=== PATIENT | female | born 1985 | race Caucasian/White ===

== ENCOUNTER → 2022-03-06 16:58 | Outpatient (CLI) | payer OTHER, SELFPAY ==
--- NOTE | ~2022-03-06 | MR_ITS ---
EXAMINATION: MR lumbar spine wo con DATE: 03/06/2022 18:31 INDICATION: Lumbago,Radiculopathy . TECHNIQUE: Magnetic resonance imaging (MRI) of the lumbar spine was performed without intravenous con trast. Sequences included sagittal T2-weighted FSE, sagittal T2-weighted FS FSE, sagittal T1-weighted FSE, and axial T2-weighted FSE. COMPARISON: None FINDINGS: Incidental pelvic cyst, likely ovarian and requires no additional follow-up. Partial sacral ization of L5 on the left, with pseudoarthrosis formation. Tarlov cysts. The last fully formed and hy drated disc is designated L5-S1. The marrow signal is benign. Conus terminates at T12-L1. Mild loss o f disc height at L4-5. Loss of disc height and dehydration at L5-S1. The following disc levels are sp ecifically discussed: T11-T12: The disc does not extend beyond the endplate margin. There is no facet joint osteoarthritis. There is no neural foraminal stenosis. There is no central canal stenosis. T12-L1: The disc does not extend beyond the endplate margin. There is no facet joint osteoarthritis. There is no neural foraminal stenosis. There is no central canal stenosis. L1-L2: The disc does not extend beyond the endplate margin. There is mild facet joint osteoarthritis. There is no neural foraminal stenosis. There is no central canal stenosis. L2-L3: Mild diffuse bulge. There is mild facet joint osteoarthritis. There is no neural foraminal kathya nosis. There is no central canal stenosis. L3-L4: Mild diffuse bulge, with a tiny 4 mm circumferentially oriented rent in the posterior disc. Th ere is moderate facet joint osteoarthritis. There is no neural foraminal stenosis. There is no centra l canal stenosis. L4-L5: Mild diffuse bulge with a right lateral predominance. There is moderate facet joint osteoarthr itis. There is no neural foraminal stenosis. There is no central canal stenosis. L5-S1: Moderate diffuse bulge. 3 mm central protrusion. 9 mm circumferentially oriented rent in the p osterior disc. There is moderate facet joint osteoarthritis. There is no neural foraminal stenosis. T here is no central canal stenosis. IMPRESSION: 1. Moderate degenerative disc disease with a 3 mm central protrusion at L5-S1. 2. 4 mm and 9 mm circumferentially oriented annulus fibrosus tears in the posterior discs at L4-5 and L5-S1 respectively. 3. Moderate facet arthropathy in the lower lumbar spine. 4. Left L5 sacralization with pseudoarthrosis. Reviewed, dictated and finalized at location K. IMPRESSION: 1. Moderate degenerative disc disease with a 3 mm central protrusion at L5-S1. 2. 4 mm and 9 mm circumferentially oriented annulus fibrosus tears in the poste rior discs at L4-5 and L5-S1 respectively. 3. Moderate facet arthropathy in the lower lumbar spine. 4. Left L5 sacralization with pseudoarthrosis.
== END ==
PROVIDERS: PCP Physician Assistant; Visit Provider Nurse Practitioner Family
DX: M54.16 Radiculopathy, lumbar region (principal); M51.36 Other intervertebral disc degeneration, lumbar region
CPT/HCPCS: 72148

== ENCOUNTER 2023-10-01 09:15 | Outpatient (CLI) | payer OTHER, SELFPAY ==
--- NOTE | 2023-10-01 10:30 | NEURO_ITS ---
Impression: # Complains of numbness of left hand. # Normal Nerve Conduction Study. No Carpal Tunnel Syndrome or ulnar neuropathy. # Normal needle/EMG exam. # Repeat study at a later date suggested Nerve Conduction Studies Anti Sensory Summary Table Stim Site NR Peak (ms) P-T Amp (?V) Site1 Site2 Delta-P (ms) Dist (cm) Eugene (m/s) Left Median Anti Sensory (2-3nd Digit) Wrist 3.0 78.9 Wrist 2-3nd Digit 3.0 14.0 47 Wrist 3.6 57.5 Wrist 2-3nd Digit 3.0 14.0 47 Right Median Anti Sensory (2-3nd Digit) Wrist 2.8 64.4 Wrist 2-3nd Digit 2.8 14.0 50 Wrist 2.7 96.8 Wrist 2-3nd Digit 2.8 14.0 50 Left Radial Anti Sensory (Base 1st Digit) Wrist 2.2 12.5 Wrist Base 1st Digit 2.2 0.0 Right Radial Anti Sensory (Base 1st Digit) Wrist 1.8 37.2 Wrist Base 1st Digit 1.8 0.0 Left Ulnar Anti Sensory (5th Digit) Wrist 2.1 80.0 Wrist 5th Digit 2.1 14.0 67 Right Ulnar Anti Sensory (5th Digit) Wrist 2.0 92.1 Wrist 5th Digit 2.0 14.0 70 Motor Summary Table Stim Site NR Onset (ms) O-P Amp (mV) Site1 Site2 Delta-0 (ms) Dist (cm) Eugene (m/s) Left Median Motor (Abd Poll Brev) Wrist 2.9 3.4 Elbow Wrist 4.4 26.0 59 Elbow 7.3 3.3 Right Median Motor (Abd Poll Brev) Wrist 2.8 12.5 Elbow Wrist 4.1 26.0 63 Elbow 6.9 9.2 Left Ulnar Motor (Abd Dig Minimi) Wrist 2.3 8.4 A Elbow Wrist 4.7 27.0 57 A Elbow 7.0 7.1 Right Ulnar Motor (Abd Dig Minimi) Wrist 2.5 6.5 A Elbow Wrist 4.5 27.0 60 A Elbow 7.0 6.7 F Wave Studies NR F-Lat (ms) L-R F-Lat (ms) Left Median (Mrkrs) (Abd Poll Brev) 25.89 0.08 Right Median (Mrkrs) (Abd Poll Brev) 25.97 0.08 Left Ulnar (Mrkrs) (Abd Dig Min) 26.06 0.28 Right Ulnar (Mrkrs) (Abd Dig Min) 25.78 0.28 EMG Side Muscle Nerve Root Ins Act Fibs Amp Dur Recrt Comment Right 1stDorInt Ulnar C8-T1 Nml Nml Nml Nml Nml Right Ext Indicis Radial (Post Int) C7-8 Nml Nml Nml Nml Nml Right Ext Digitorum Radial (Post Int) C7-8 Nml Nml Nml Nml Nml Right BrachioRad Radial C5-6 Nml Nml Nml Nml Nml Right PronatorTeres Median C6-7 Nml Nml Nml Nml Nml Right Abd Poll Brev Median C8-T1 Nml Nml Nml Nml Nml Left 1stDorInt Ulnar C8-T1 Nml Nml Nml Nml Nml Left Ext Indicis Radial (Post Int) C7-8 Nml Nml Nml Nml Nml Left Ext Digitorum Radial (Post Int) C7-8 Nml Nml Nml Nml Nml Left BrachioRad Radial C5-6 Nml Nml Nml Nml Nml Left PronatorTeres Median C6-7 Nml Nml Nml Nml Nml Left Abd Poll Brev Median C8-T1 Nml Nml Nml Nml Nml MTDD
== END 2023-10-01 09:16 | disposition home or self-care (01) ==
LOC: ANHNEURO 09:20
PROVIDERS: PCP Physician Assistant; Visit Provider Physician Assistant
DX: R20.2 Paresthesia of skin (principal)
CPT/HCPCS: 95886; 95911

== ENCOUNTER 2024-08-24 14:22 | Outpatient (CLI) | payer OTHER, SELFPAY ==
--- NOTE | ~2024-08-24 | MM_ITS ---
EXAMINATION: MM screening pilar BI w judith HISTORY: Screening TECHNIQUE: Craniocaudal and mediolateral oblique 3-D tomosynthesis images were obtained and synthetic 2-D images were generated. CAD analysis was submitted and interpreted. COMPARISON: No prior mammogram is available for comparison at this institution. BREAST PARENCHYMAL COMPOSITION: Not dense: There are scattered areas of fibroglandular density. FINDINGS: There are asymmetries in the upper outer quadrant of both breasts, posterior third. There a re no suspicious calcifications. IMPRESSION: 1. Bilateral breast asymmetries. 2. Additional mammographic views and possible breast ultrasound are recommended. BI-RADS Category 0: Incomplete: Needs additional imaging evaluation. Reviewed, dictated and finalized at location B. AN/WOMAN IMPRESSION: 1. Bilateral breast asymmetries. 2. Additional mammographic views and possible breast ultrasound are recommended . BI-RADS Category 0: Incomplete: Needs additional imaging evaluation.
== END 2024-08-24 14:23 | disposition home or self-care (01) ==
LOC: CHSIMG 14:24
PROVIDERS: PCP Physician Assistant; Visit Provider Nurse Practitioner Obstetrics & Gynecology
DX: Z12.31 Encounter for screening mammogram for malignant neoplasm of breast (principal); R92.8 Other abnormal and inconclusive findings on diagnostic imaging of breast
CPT/HCPCS: 77063; 77067

== ENCOUNTER 2024-09-09 12:48 | Outpatient (CLI) | payer OTHER, SELFPAY ==
--- NOTE | ~2024-09-09 | MM_ITS ---
EXAMINATION: MM diagnostic pilar BI w judith HISTORY: Bilateral asymmetric densities TECHNIQUE: Additional 3-D tomosynthesis images of the breasts were performed and synthetic 2-D images were generated. CAD analysis was submitted and interpreted. COMPARISON: 08/24/2024 BREAST PARENCHYMAL COMPOSITION:Not Dense. There are scattered areas of fibroglandular density. FINDINGS: The areas of asymmetry effaced bilaterally with spot compression. No persistent mass lesion or distortion seen. No suspicious macrocalcification. IMPRESSION: No mammographic evidence for malignancy. BI-RADS Category 1: Negative Reviewed, dictated and finalized at location . C PROFESSOR
== END 2024-09-09 12:49 | disposition home or self-care (01) ==
LOC: ANHIMG 12:49
PROVIDERS: PCP Physician Assistant; Visit Provider Nurse Practitioner Obstetrics & Gynecology
DX: R92.8 Other abnormal and inconclusive findings on diagnostic imaging of breast (principal)
CPT/HCPCS: 77062; 77066; G0279

== ENCOUNTER 2025-02-11 05:54 | Day surgery (SDC) | payer OTHER, SELFPAY ==
[2025-01-25 11:42] VITALS: BMI 30.2
[2025-02-11] VITALS (11 sets, daily range): BP systolic 125–149; BP diastolic 83–96; PULSE 68–88; RESP 12–16; TEMP 35.8–37.1; O2SAT 95–100
--- OUTSIDE RECORDS SUMMARY | 2025-02-11 06:08 | XMS_ITS | Clinical Summary ---
Author Organization [facility] Address [address] [place] [address] Phone Care Team Providers Care Stone Operator Name Role Phone Cate Wolfe MD Primary Care Provider +1- [phone] Social History Tobacco Use Types Packs/Day Years Used Date Smoking Tobacco: Never Assessed Comments Unknown Sex and Gender Information Value Date Recorded Sex Assigned at Not on file Legal Sex Female 4:56 AM PRODUCT MANAGENT INTERN Gender Identity Not on file Sexual Orientation Not on file Plan of Treatment Health Maintenance Due Date Last Done Comments DTAP/TDAP/TD VACCINES (1 - Tdap) 2003 HEPATITIS B VACCINES (1 of 3 - 19+ 3-dose series) 2003 HPV/Cotest (21-29) 2005 CERVICAL CANCER SCREENING 2014 HPV/Cotest (30-65) 2014 PAP SMEAR 2014 INFLUENZA VACCINE (#1) 2024 BREAST CANCER SCREENING 2024 HPV VACCINES Aged Out No longer eligi ble based on patient's age to complete this topic Insurance [facility] [id number] Care Teams Stone Operator Relationship Specialty Start Date End Date Cate Wolfe MD PCP - General Internal Medicine 08/18/14
--- OUTSIDE RECORDS SUMMARY | 2025-02-11 06:08 | XMS_ITS | Referral Summary ---
Author Organization [facility] [address] [facility] lt Address [address] [place] [facility] [address] Care Team Providers Care Globe Tester Name Role Phone Aleisha Meyer Primary Care Pr ovider Aleisha Meyer Unavailable Encounters Date Type Department Care Team Description 02/09/2025 6:45 PM CDT Office Visit [facility] at [address] [address] Almita Pappas NP Acute cough (Primary Dx) from Last 3 Months Allergies No known active allergies Medications fexofenadine (GRAHAM) 180 mg tablet take 1 tablet by oral route every day 0 0 4 Active zolpidem (AMBIEN) 5 mg tabletIndicatio ns:Sleep-Onset Insomnia Take 1 tablet (5 mg total) by mouth nightly as needed for sleep 10 tablet 5 0 Active Additional Information Patient not taking.Reported on 02/09/2025 hydroCHLOROthia zide (HYDRODIURIL) 12.5 mg tablet Take 1 tablet (12.5 mg total) by mouth every morning 5 9 Active montelukast (SINGULAIR) 10 mg tablet Take 1 tablet (10 mg total) by mouth daily 3 9 Active albuterol HFA (PROVENTIL HFA,VENTOLIN HFA,PROAIR HFA) 90 mcg/actuation inhaler Inhale 2 puffs every 6 (six) hours as needed 1 Active Kesimpta Pen 20 mg/0.4 mL pen injectorIndicat ions:Multiple sclerosis (HCC) Inject 20 mg under the skin every 30 (thirty) days 0.4 mL 5 5 Active baclofen (LIORESAL) 10 mg tablet TAKE 1 TABLET BY MOUTH DAILY NEEDED FOR MUSCLE SPASMS. 90 tablet 1 5 Active tiZANidine (ZANAFLEX) 4 mg tablet Take 1 tablet (4 mg total) by mouth as needed 4 Active busPIRone (BUSPAR) 15 mg tabletIndicatio ns:Anxiety and depression Take 1 tablet (15 mg total) by mouth 2 (two) times a day 60 tablet 5 5 Active benzonatate (TESSALON) 200 mg capsuleIndicati ons:Acute cough Take 1 capsule (200 mg total) by mouth 3 (three) times a day as needed for cough 20 capsule 5 Active Active Problems Problem Noted Date Diagnosed Date Sensorineural hearing loss ( SNHL) of left ear with unrestricted hearing of right ear 08/20/2024 Assessment & Plan (08/20/2024 2:02 PM CDT): Nasal saline spray (Simply saline, Little Remedies, [place], Cranberry) 2 second sprays or 2 squeezes into each nostril while looking down over the sink, do not need to sniff in. Nasacort 2 sprays into each nostril while looking down over the sink, do not sniff in or blow nose after use for at least 30 minutes daily Cetirizine 10 mg daily Continue Singulair Blood allergy testing Hearing test Anxiety and depression 05/08/2024 Assessment & Plan (11/12/2024 11:53 AM JAVA TECH): Increase buspirone to 15 mg twice a day from 7.5 mg twice a day Assessment & Plan (05/08/2024 1:15 PM CDT): Buspirone 10 mg twice a day Vitamin D deficiency 11/08/2023 Assessment & Plan (11/12/2024 11:54 AM JAVA TECH): 12/30/18 vitamin D 16 Vitamin D3 1000 IU daily Assessment & Plan (05/08/2024 1:14 PM CDT): 12/30/18 vitamin D 16 Vitamin D3 5000 IU daily History of COVID-19 11/08/2023 Assessment & Plan (05/08/2024 1:15 PM CDT): Three prior infections. Blood glucose abnormal 06/10/2023 Weight gain 06/10/2023 Carpal tunnel syndrome of left wrist 04/02/2023 Pain of left hand 04/02/2023 Paresthesia of hand 03/19/2023 Acute left otitis media 10/23/2022 Contact dermatitis due to poison saira 06/19/2022 Tension-type headache 04/18/2022 Insomnia 02/19/2022 Assessment & Plan (11/12/2024 11:53 AM JAVA TECH): Ambien 5 mg nightly as needed Assessment & Plan (05/08/2024 1:15 PM CDT): Ambien 5 mg nightly as needed Acute sinusitis 09/12/2020 Anemia 09/12/2020 Benign essential hypertension 06/02/2019 Allergic rhinitis 08/04/2015 Assessment & Plan (08/20/2024 2:01 PM CDT): Nasal saline spray (Simply saline, Little Remedies, [place], Cranberry) 2 second sprays or 2 squeezes into each nostril while looking down over the sink, do not need to sniff in. Nasacort 2 sprays into each nostril while looking down over the sink, do not sniff in or blow nose after use for at least 30 minutes daily Cetirizine 10 mg daily Continue Singulair Blood allergy testing Hearing test Vertigo 12/01/2013 Overview (01/23/2017): Vertigo Migraine 09/23/2013 Overview (01/25/2017): Migraine Panic disorder without agoraphobia 09/10/2012 Personal history of other di seases of the nervous system and sense organs 09/10/2012 Overview (09/12/2020): Since childhood Will see neurologist Multiple sclerosis 12/31/2011 Overview (01/23/2017): Multiple sclerosis Assessment & Plan (11/12/2024 11:54 AM JAVA TECH): Diagnosed Age 16: Left hemibody numbness for 2 weeks with abnormal MRI and CSF. Periventricular, juxtacortical and cervical spinal cord lesions CSF 10/09/02: IgG index 1.54 (0-0.85), IgG synthesis rate 17.0 (0.0-12.0). Oligoclonal band report ambiguous: E lectrophoresis suggest the presence of monoclonal protein in the CSF. NMO and anti-MOG antibody negative 11/07/23 Kesimpta 20 mg monthly. Start Kesimpta 2020. The benefits and risks of Kesimpta were discussed including anaphylaxis, injection site reactions, harm and serious infections including herpetic infections and PML. Option of Briumvi discussed again. Increased risk of serious complications including pneumonia and possibly if she develops COVID-19 reinfection discussed. Her last COVID-19 vaccine was September 28, 2021. Booster vaccination recommended. She understands that Kesimpta may reduce the efficacy of a COVID-19 vaccine and potentially she may not be protected. Paxlovid advised if she develops recurrent COVID-19. Baclofen 10 mg every 8 hours as needed Exercise encouraged MRI brain and cervical spine without contrast November 2025 Assessment & Plan (05/08/2024 1:20 PM CDT): Diagnosed Age 16: Left hemibody numbness for 2 weeks with abnormal MRI and CSF. Periventricular, juxtacortical and cervical spinal cord lesions CSF 10/09/02: IgG index 1.54 (0-0.85), IgG synthesis rate 17.0 (0.0-12.0). Oligoclonal band report ambiguous: E lectrophoresis suggest the presence of monoclonal protein in the CSF. NMO and anti-MOG antibody negative 11/07/23 Kesimpta 20 mg monthly. Start Kesimpta 2020. The benefits and risks of Kesimpta were discussed including anaphylaxis, injection site reactions, harm and serious infections including herpetic infections and PML. Option of Briumvi discussed. The benefits and risks of Briumvi were discussed including serious infusion reactions, harm and serious infections including respiratory, herpetic and PML. Increased risk of serious complications including pneumonia and possibly if she develops COVID-19 reinfection discussed. Her last COVID-19 vaccine was September 28, 2021. Booster vaccination recommended. She understands that Kesimpta may reduce the efficacy of a COVID-19 vaccine and potentially she may not be protected. Paxlovid advised if she develops recurrent COVID-19. Baclofen 10 mg every 8 hours as needed Exercise encouraged Optic neuritis 12/31/2011 Overview (01/25/2017): Optic neuritis Muscle cramps 12/31/2011 Overview (01/25/2017): Muscle spasm Resolved Problems Problem Noted Date Diagnosed Date Resolved Date Generalized anxiety disorder 09/23/2013 05/08/2024 Overview (01/25/2017): JORJE (generalized anxiety disorder) Immunizations Immunization Administration Dates Next Due [facility] (J&J) SARS-CoV-2 Vaccination 01/24/2021, 12/23/2020 Moderna SARS-CoV-2 Monovalent Vaccination (12+ Y RS) 09/28/2021 Pneumococcal Conjugate, Unspecified 10/21/2013 Pneumococcal Polysaccharide PPV23 09/23/2013 Td, adsorbed 09/20/2010 Tdap 09/30/2010 Social History Tobacco Use Types Packs/Day Years Used Date Smoking Tobacco: Never Smokeless Tobacco: Never Tobacco Cessation:Counseling Given: Not Answered Alcohol Use Standard Drinks/Week Comments No 0 (1 standard drink = 0.6 oz pur e alcohol) AUDIT-C Answer Date Recorded Q1: How often do you have a drink containing alc ohol? Monthly or less 11/07/2023 Q2: How many drinks containi ng alcohol do you have on a typical day when you are drinking? 1 or 2 11/07/2023 Q3: How often do you have si x or more drinks on one occasion? Less than monthly 11/07/2023 Comments No Sex and Gender Information Value Date Recorded Sex Assigned at Not on file Legal Sex Female 12:53 AM JAVA TECH Gender Identity Female 08/08/2021 5:49 PM CDT Sexual Orientation Straight 08/08/2021 5: 49 PM CDT Last Filed Vital Signs Vital Sign Reading Time Taken Comments Blood Pressure 128/89 02/09/2025 7:01 PM CDT Pulse 81 02/09/2025 7:01 PM CDT Temperature 37.1 C (98.7 F) 02/09/2025 7:01 PM CDT Respiratory Rate 12 02/09/2025 7:01 PM CDT Oxygen Saturation 99% 02/09/2025 7:01 PM CDT Inhaled Oxygen Concentration - - Weight 74.8 kg (165 lb) 02/09/2025 7:01 PM CDT Height 157.5 cm (5' 2 ) 02/09/2025 7:01 PM CDT Body Mass Index 30.18 02/09/2025 7:01 PM CDT Plan of Treatment Not on file Insurance [facility] Address: [address] [address] [place] [address] [facility]/PPO Address: [id number] [place] [address] Care Teams Globe Tester Relationship Specialty Start Date End Date Aleisha Meyer PA PCP - General Physician Nozzleman 10/16/19 Aleisha Meyer PA 10/16/19
--- OUTSIDE RECORDS SUMMARY | 2025-02-11 06:08 | XMS_ITS | Encounter Summary ---
Author Organization [facility] Address [address] [place] [address] Care Team Providers Care Apparel Manager Name Role Phone Cate Wolfe MD Primary Care Provider +1- [phone] Encounter Details Date Type Department Care Team (Latest Contact Info) Description 10/12/2005 Outpatient [facility] [address] [address] Lexi Islas MD [address] [address] DIZZINESS AND GIDDINESS (Primary Dx) Social History Tobacco Use Types Packs/Day Years Used Date Smoking Tobacco: Never Assessed Comments Unknown Sex and Gender Information Value Date Recorded Sex Assigned at Not on file Legal Sex Female 4:56 AM MAINTENANCE ENGINEER Gender Identity Not on file Sexual Orientation Not on file documented as of this encounter Plan of Treatment Not on file documented as of this encounter Visit Diagnoses Diagnosis Dizziness and giddiness- Primary documented in this encounter Care Teams Apparel Manager Relationship Specialty Start Date End Date Cate Wolfe MD PCP - General Internal Medicine 08/18/14 documented as of this encounter
--- OUTSIDE RECORDS SUMMARY | 2025-02-11 06:08 | XMS_ITS | Clinical Summary ---
Author Organization [facility] [address] [facility] lt Address [address] [place] [facility] [place] [address] Care Team Providers Care Home Restoration Service Cleaner Name Role Phone Aleisha Meyer Primary Care Pr ovider Aleisha Meyer Unavailable Allergies No known active allergies Medications fexofenadine [...] Nasal saline spray (Simply saline, Little Remedies, [place], [place]) 2 second sprays or 2 squeezes into [...] 05/08/2024 Assessment & Plan (11/12/2024 11:53 AM SUPERVISOR CARTOGRAPHY): Increase buspirone to 15 mg twice a day from 7.5 mg twice a day Assessment & Plan (05/08/2024 1:15 PM CDT): Buspirone 10 mg twice a day Vitamin D deficiency 11/08/2023 Assessment & Plan (11/12/2024 11:54 AM SUPERVISOR CARTOGRAPHY): 12/30/18 vitamin D 16 Vitamin D3 1000 [...] 02/19/2022 Assessment & Plan (11/12/2024 11:53 AM SUPERVISOR CARTOGRAPHY): Ambien 5 mg nightly as needed Assessment & Plan (05/08/2024 1:15 PM CDT): Ambien 5 mg nightly as needed Acute sinusitis 09/12/2020 Anemia 09/12/2020 Benign essential hypertension 06/02/2019 Allergic rhinitis 08/04/2015 Assessment & Plan (08/20/2024 2:01 PM CDT): Nasal saline spray (Simply saline, Little Remedies, [place], [place]) 2 second sprays or 2 squeezes into [...] sclerosis Assessment & Plan (11/12/2024 11:54 AM SUPERVISOR CARTOGRAPHY): Diagnosed Age 16: Left hemibody numbness for [...] 05/08/2024 Overview (01/25/2017): JORJE (generalized anxiety disorder) Encounters Date Type Department Care Team Description 02/09/2025 6:45 PM CDT Office Visit [facility] at [address] [address] Almita Pappas, COLLEEN Acute cough (Primary Dx) from Last 3 Months Immunizations Immunization Administration Dates Next Due [facility] (J&J) SARS-CoV-2 Vaccination 01/24/2021, 12/23/2020 Moderna SARS-CoV-2 Monovalent Vaccination (12+ Y RS) 09/28/2021 Pneumococcal Conjugate, Unspecified 10/21/2013 Pneumococcal Polysaccharide PPV23 09/23/2013 Td, adsorbed 09/20/2010 Tdap 09/30/2010 Surgical History Surgery Date Site/Laterality Comments SECTION x2 Medical History Medical History Date Comments Anemia Anemia Hx Other Medical Headache, migra ine Hx Other Medical Dr. Cano/Ob/g teagann/Bennett Hx Other Medical Dr. De Paz/neurolo gy Hx Other Medical 2007 and 2010. Hx Other Medical hx of pre-eclam psia Hx Other Medical hx of anemia. Hx Other Medical Multiple Sclero sis; Comments: SAB 06/22/2014 - Family History Medical History Relation Name Comments Other Brother 2 Alive and well; Coronary artery disease Father Alcides nary artery disease; Cause of : Coronary artery disease Diabetes Father Diabetes mellit us; Hypertension Father Hypertension; Other Father pulmonary fibro sis; /double lung tx; Melanoma Maternal Grandmother melanom a; Coronary artery disease Mother Alcides nary artery disease; first [place] 58 Hypertension Mother Hypertension; Hypertension Sister jesus Hypertension; Other Sister jesus flutter induced [place]; Rheum arthritis Sister jesus RA; Relation Name Status Comments Brother 1 Alive Brother 2 Father (Age 61) Maternal Grandmother Mother Alive Sister jesus Social History Tobacco Use Types Packs/Day Years [...] on file Legal Sex Female 12:53 AM SUPERVISOR CARTOGRAPHY Gender Identity Female 08/08/2021 5:49 PM CDT Sexual Orientation Straight 08/08/2021 5: 49 PM CDT Obstetrics History Last Filed Vital Signs Vital Sign Reading [...] 02/09/2025 7:01 PM CDT Plan of Treatment Health Maintenance Due Date Last Done Comments Breast Cancer Screening-Mammogram 1984 Cervical Cancer Screening 1984 Depression Screening 1984 Hepatitis C Screening 1984 Varicella Vaccines (1 of 2 - 13+ 2-dose series) 1997 Hepatitis B Screening 2002 Regular Well Visit/Exam 18-64 2002 DTaP/Tdap/Td Vaccine (2 - Td or Tdap) 09/30/2020 09/30/2010, 09/20/2010 Covid-19 Vaccine ( season) 2024 09/28/2021, 01/24/2021, 01/20/2021, Additional history exists Influenza Vaccine (Season Ended) 2025 Pneumococcal vaccine <65 Aged Out 10/21/2013, 01/2013 No longer eligible based on patient's age to complete this topic HPV Vaccines Aged Out No longer eligi ble based on patient's age to complete this topic Insurance [facility] CHOICE PLUS [place] [id number] [place] [id number] Care Teams Home Restoration Service Cleaner Relationship Specialty Start Date End Date Aleisha Meyer PA PCP - General Physician Merchandise Carrier 10/16/19 Aleisha Meyer PA 10/16/19
--- OUTSIDE RECORDS SUMMARY | 2025-02-11 06:08 | XMS_ITS | Encounter Summary ---
[facility] Organization [facility] Address [address] [place] [address] Care Team Providers Care Visiting Teacher Name Role Phone Cate Wolfe MD Primary Care Provider [phone] Encounter Details Date Type Department Care Team (Late st Contact Info) Description 09/26/2005 Outpatient Historical Division of Neurology [address] [place] [address] Lexi Islas MD [address] [place] [id number] Social History Tobacco Use Types Packs/Day Years Used Date Smoking Tobacco: Never Assessed Comments Unknown Sex and Gender Information Value Date Recorded Sex Assigned at Not on file Legal Sex Female 4:56 AM TROMPER Gender Identity Not on file Sexual Orientation Not on file documented as of this encounter Plan of Treatment Not on file documented as of this encounter Visit Diagnoses Not on filedocumented in this encounter Care Teams Visiting Teacher Relationship Specialty Start Date End Date Cate Wolfe MD PCP - General Internal Medicine 08/18/14 documented as of this encounter
--- OUTSIDE RECORDS SUMMARY | 2025-02-11 06:08 | XMS_ITS | Clinical Summary ---
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 Gender Identity Not on file Sexual Orientation Not on file Plan of Treatment Health Maintenance Due Date Last Done Comments Hepatitis C Virus (HCV) Screening 1984 TdaP Immunization 1984 Hepatitis B Immunization (1 of 3 - 19+ 3-dose series) 2003 Pap Smear 2005 Cervical Cancer Screening (CCS) 2014 HPV/Cotest 2014 Influenza Immunization (#1) 2024 SARS-COV-2 Immunization ( season) 2024 Discussion re Starting/Frequ ency of Mammograms 2024 Respiratory Syncytial Virus (RSV) Immunization (Adult) (1 - 1-dose 75+ series) 2059 Meningococcal Immunization (ACWY) Aged Out No longer eligible based on patient's age to complete this topic Pneumococcal Immunization Combined Aged Out No longer eligible based on patient's age to complete this topic Rotavirus Immunization Aged Out No lo nger eligible based on patient's age to complete this topic
--- OUTSIDE RECORDS SUMMARY | 2025-02-11 06:08 | XMS_ITS | Clinical Summary ---
Author Organization [facility] Address [address] [place] [id number] Care Team Providers Care Flight Engineer Name Role Phone Unavailable Primary Care Provider Unavailabl e Social History Tobacco Use Types Packs/Day Years Used Date Smoking Tobacco: Never Assessed Comments Unknown Sex and Gender Information Value Date Recorded Sex Assigned at Not on file Legal Sex Female 7:26 PM CDT Gender Identity Not on file Sexual Orientation Not on file Plan of Treatment Health Maintenance Due Date Last Done Comments Cervical Cancer Screening Pa p Smear (Age 30 to 64) Every 3 Years 1984 Annual Physical 1987 Hepatitis C 2002 DTaP, Tdap and Td Vaccines ( 1 - Tdap) 2003 Hepatitis B Vaccines (1 of 3 - 19+ 3-dose series) 2003 Cervical Cancer Screening Pa p with HPV Testing (Age 30 to 64) Every 5 Years 2014 Cervical Cancer Screening with HPV 2014 COVID-19 Vaccine (2023-2 5 season) 2024 Mammogram Screening 2024 HPV Vaccines Aged Out No longer eligi ble based on patient's age to complete this topic Meningococcal B Vaccine Aged Out No l onger eligible based on patient's age to complete this topic Meningococcal Vaccine Aged Out No chente demetrio eligible based on patient's age to complete this topic Pneumococcal Vaccine: Pediat rics (0 to 5 Years) and At-Risk Patients (6 to 49 Years) Aged Out No longer eligible b ased on patient's age to complete this topic RSV Immunizations Under 20 Months Aged Out No longer eligible based on patient's age to complete this topic
--- OUTSIDE RECORDS SUMMARY | 2025-02-11 06:08 | XMS_ITS | Data Portability ---
Author Organization [facility] Archana Bellamy Address [address] [facility] [place] [address] Care Team Providers Care Management Scientist Name Role Phone MIKEY FALK Primary Care Provider RIOS Kenney Centralized Traffic Control Operator [phone] Assessment Encounter Date Assessment Date Assessment LastModified by Organization Details LastModified Time 12/19/2023 12/19/2023 Mammogram due at age 39. discuss with gyne. Not available 12/19/2023 10:36:23 06/18/2024 06/18/2024 Mammogram due at age 39. discuss with gyne. Not available 06/18/2024 10:30:35 01/19/2025 01/19/2025 Diagnostic mammogram completed September 09, 2024 is normal Patient did not complete her labs yet Not available 01/19/2025 10:07:40 Plan of Treatment Reminders Order Date Submit Date Provider Last Modified By Organization Details Last Modified Time Details Appointments ANY 15 2024 08:45A M MAGDALENA Cavazos Not available Not available Not available Lab vitamin D, 25-hydrox y, total, serum 2024 025 [facility], [address] [facility] [address], [address], 01/22/2025 09:09:13 TSH + free T4, serum 2024 025 [facility], [address] [facility], [facility], [place], [address], 01/22/2025 09:09:08 CMP, serum or plasma 2024 025 [facility], [address], [place], [address], 01/22/2025 09:09:09 CBC w/ auto diff 2024 025 [facility], [address], [place], [address], 01/22/2025 09:09:12 cobalamin and folate panel, serum 2024 025 [facility], [address], [place], [address], 01/22/2025 09:09:10 lipid panel, serum 2024 025 [facility], [address], [place], [address], 01/22/2025 09:09:07 HbA1c (hemoglob in A1c), blood 2024 025 [facility], [address], [place], [address], 01/22/2025 09:09:11 TSH + free T4, serum 2023 024 [email or web address] [facility], [address], [place], [address], 01/20/2025 10:56:23 lipid panel, serum 2023 024 [email or web address] [facility], [address], [place], [address], 01/20/2025 10:56:13 HbA1c (hemoglob in A1c), blood 2023 024 [facility], [address], [place], [address], 01/20/2025 10:56:33 TSH + free T4, serum 2023 024 [email or web address] [facility], [address] [facility], [facility], [place], [address], 02/04/2024 07:55:59 lipid panel, serum 2023 024 [email or web address] [facility], [address] [facility], [facility], [place], [address], 02/04/2024 07:55:59 CMP, serum or plasma 2023 024 [email or web address] [facility], [address] [facility], [facility], [place], [address], 02/04/2024 07:55:58 CBC w/ auto diff 2023 024 [email or web address] [facility], [address] [facility], [facility], [place], [address], 02/04/2024 07:55:58 urinalysi s complete, reflex culture 2023 024 [email or web address] [facility], [address] [facility], [facility], [place], [address], 02/04/2024 07:55:59 HbA1c (hemoglob in A1c), blood 2023 024 [facility], [address] [place] [address] 2, [place], [address], 02/04/2024 07:55:59 Referral plastic surgeon referral 2023 024 vincent Chu MD, [address] [facility] [address], [place], [address], 10/16/2024 15:06:58 Procedures None recorded. Surgeries None recorded. Imaging None recorded. Medication Orders ergocalci ferol (vitamin D2) 1,250 mcg (50,000 unit) capsule 2023 024 [facility][id number], [address] [place], [address], 12/19/2023 10:24:38 Patient TargetsNo targets recorded. Patient Instructions Encounter Date Encounter Id Patient Instructions Last Modified By Organization Details Last Modified Time 06/18/2024 [id number] A healthy lifestyle: care instructions [place] [id number] Not available 06/22/2024 10:19:18 01/19/2025 [id number] A healthy lifestyle: care instructions [place] [id number] Not available 01/19/2025 10:03:41 Reason for Referral Plastic Surgeon Referral for Macromastia pt would like to consult if she is candidate for breast reduction. Referring Physician: Mikey Falk, Internal Medicine, Encounter Date: 06/18/2024 Results Created Date Observation Date Name Description Value Unit Range Abnormal Flag Note LastModifiedBy Organization Detail LastModifiedTime 08/25/20 24 08/24/2024 MAMMO , scree katelin, digit al, bilat eral No observ ation record ed. [address] [place], [address], 08/25/2024 09:05:59 09/09/20 24 09/09/2024 MAMMO , diagn ostic , bilat eral No observ ation record ed. [address] [facility] [address], [place], [address], 09/09/2024 17:38:16 Result Notes None recorded. Problems Name Problem SNOMED Code Status Onset Date Resolution Date Notes Provider Name and Address Organization Details Recorded Time Multiple sclerosis 35364381 Active 2023 MAGDALENA Cavazos Attn: Asim hurley,[address] [facility], [place], [address], [facility] 4 10:16:29 Generalized anxiety disorder 69307046 Active 2023 MAGDALENA Cavazos Attn: Asim hurley,[address] [facility], [place], [address], [facility] 4 10:16:32 Benign essential hypertension 5072967 Active 2023 MAGDALENA Cavazos Attn: Accountin g,[address] [facility], [place], [address], [facility] 4 10:17:24 Vitamin D deficiency 31968744 Active 2023 MAGDALENA Cavazos Attn: Accountin g,[address] [facility], [place], [place], [address] [place] [address] 2, [facility] 4 10:17:26 Long-term drug therapy Active 2023 MAGDALENA Cavazos Attn: Accountin g,[address] [facility], [place], [place], [address] [place] [address] 2, [facility] 4 10:17:48 Insomnia 919811461 Active 2023 MAGDALENA Cavazos Attn: Accountin g,[address] [facility], [place], [address] [place] [address] 2, [facility] 4 10:17:49 Macromastia 429792322 Active 2023 MAGDALENA Cavazos Attn: Accountin g,[address] [facility], [place], [address] [place] [address] 2, [facility] 4 10:18:02 Body mass index 30+ - obesity 018938928 Active 2023 MAGDALENA Cavazos Attn: Accountin g,[address] [facility], [place], [address] [place] [address] 2, [facility] 4 10:18:53 Obesity 444017737 Active 2023 MAGDALENA Cavazos Attn: Accountin g,[address] [facility], [place], [address] [place] [address] 2, [facility] 4 10:19:15 Problem Notes None recorded. Procedures Surgical History Date Name Laterality Status Provider Name and Address Organization Details Recorded Time section completed Lydia Nails MA [facility] 12/19/2023 10:44:52 Total hysterectomy completed Lydia Nails MA [facility] 12/19/2023 10:45:02 Imaging Results Imaging Date Name Status LastModified by Organiz ation Details LastModified Time 08/24/2024 MAMMO, screening, digital, bilateral completed [email or web address] [facility] [address] [facility], [place], [address], 08/25/2024 09:05:59 09/09/2024 MAMMO, diagnostic, bilateral completed [email or web address] [facility] [address] [facility] [address], [place], [address], 09/09/2024 17:38:16 Procedure Notes None recorded. Medical Equipment None Reported. Allergies No known drug allergies Medications Name Sig Start Date Stop Date Status Note LastModified by Organization Details LastModified Time azithromyc in 250 mg tablet TAKE 2 TABLETS BY MOUTH TODAY, THEN TAKE 1 TABLET DAILY FOR 4 DAYS DIRECTED completed Not Available Not Available Not Available tizanidine 4 mg tablet TAKE ONE TABLET BY MOUTH EVERY 6 HOURS NEEDED FOR MUSCLE TENSION active Not Available Not Available No t Available baclofen 10 mg tablet TAKE 1 TABLET BY MOUTH DAILY NEEDED FOR MUSCLE SPASMS. active Not Available Not Available No t Available buspirone 7.5 mg tablet TAKE 1 TABLET BY MOUTH TWICE A DAY 01/19 completed Not Available Not Available Not Available montelukas t 10 mg tablet TAKE 1 TABLET BY MOUTH DAILY 2024 active Not Available Not Available Not Avai lable zolpidem 5 mg tablet active pt has taken this in a while Not Available Not Available Not Available ergocalcif annette (vitamin D2) 1,250 mcg (50,000 unit) capsule Take 1 capsule every week by oral route. 2024 active Not Available Not Available Not Avai lable methylpred nisolone 4 mg tablets in a dose pack TAKE 6 TABLETS ON DAY 1 DIRECTED ON PACKAGE AND DECREASE BY 1 TAB EACH DAY FOR A TOTAL OF 6 DAYS completed Not Available Not Available Not Available buspirone 15 mg tablet TAKE 1 TABLET BY MOUTH TWICE A DAY active Not Available Not Available No t Available hydrochlor othiazide 12.5 mg tablet TAKE 1 TABLET BY MOUTH DAILY IN THE MORNING 2024 active Not Available Not Available Not Avai lable Kesimpta Pen 20 mg/0.4 mL subcutaneo us pen injector once monthly. active Not Available Not Available No t Available BinaxNOW COVID-19 Ag Self Test kit TEST DIRECTED TODAY 01/19 completed Not Available Not Available Not Available Vitals Date Recorded Body height Body mass index (BMI) Body weight Heart rate Respiratory rate Oxygen saturation Oxygen saturation in Arterial blood by Pulse oximetry Systolic blood pressure Diastolic blood pressure Provider Name and Address Organization Details Last Updated DateTime 4 157.48 cm 30 kg/m2 16697.1 5 g 98 /min 18 /min 88 % 88 % 144 mm[Hg] 95 mm[Hg] Lydia Nails MA [facility] 4 09:58:23 Date Recorded Systolic blood pressure Diastolic blood pressure Provider Name and Address Organization Details Last Updated DateTime 12/19/2023 130 mm[Hg] 88 mm[Hg] MAGDALENA Cavazos Attn: Accounting,[address] [place], [address], [facility] 12/29/2023 17:24:07 Date Recorded Body height Body mass index (BMI) Body weight Respiratory rate Oxygen saturation Oxygen saturation in Arterial blood by Pulse oximetry Heart rate Systolic blood pressure Diastolic blood pressure Provider Name and Address Organization Details Last Updated DateTime 4 157.48 cm 30.4 kg/m2 77583.6 9 g 18 /min 99 % 99 % 78 /min 146 mm[Hg] 90 mm[Hg] Lydia Nails MA [facility] 4 10:14:13 Date Recorded Body height Body mass index (BMI) Body weight Oxygen saturation Oxygen saturation in Arterial blood by Pulse oximetry Heart rate Respiratory rate Systolic blood pressure Diastolic blood pressure Provider Name and Address Organization Details Last Updated DateTime 5 157.48 cm 30 kg/m2 45526.1 5 g 99 % 99 % 69 /min 18 /min 136 mm[Hg] 82 mm[Hg] Lydia Nails MA [facility] 5 09:50:17 Date Recorded Systolic blood pressure Diastolic blood pressure Provider Name and Address Organization Details Last Updated DateTime 01/19/2025 130 mm[Hg] 80 mm[Hg] MAGDALENA Cavazos Attn: Accounting,[address] [facility], [place], [address], [facility] 01/19/2025 10:07:30 Social History Question Answer Notes LastModified by Organizat ion Details LastModified Time Tobacco Smoking Status Never Smoker Lyida Nails MA null, [facility] 12/19/2023 09:59:45 Do You Have An Advance Directive? No Information not available 06/18/2024 What Is Your Level Of Alcohol Consumption? Occasional 1x Month Information not available 12/19/2023 Are You Blind Or Do You Have Difficulty Seeing? No Information not available 12/19/2023 What Is Your Level Of Caffeine Consumption? None Information not available 12/19/2023 In The 14 Days Before Symptom Onset, Have You Had Close Contact With A Laboratory-confi rmed COVID-19 While That Case Was Ill? No Information not available 12/19/2023 In The 14 Days Before Symptom Onset, Have You Had Close Contact With A Person Who Is Under Investigation For COVID-19 While That Person Was Ill? No Information not available 12/19/2023 Have You Been To An Area Known To Be High Risk For COVID-19? No Information not available 12/19/2023 Are You Currently Employed? Yes Information not available 12/19/2023 Are You Deaf Or Do You Have Serious Difficulty Hearing? No Information not available 12/19/2023 What Type Of Diet Are You Following? REGULAR Information not available 12/19/2023 What Is Your Occupation? [employer] Information not available 12/19/2023 Are There Any Guns Present In Your Home? No Information not available 12/19/2023 What Was The Date Of Your Most Recent Tobacco Screening? 01/19/2025 Information not available 01/19/2025 What Is Your Relationship Status? Information not available 06/18/2024 Do You Use Your Seat Belt Or Car Seat Routinely? Yes Information not available 12/19/2023 Do You Have Smoke And Carbon Monoxide Detectors In Your Home? Yes Information not available 12/19/2023 Do You Use Any Illicit Or Recreational Drugs? No Information not available 12/19/2023 Do You Use Sunscreen Routinely? Yes Information not available 12/19/2023 Has Tobacco Cessation Counseling Been Provided? No Information not available 12/19/2023 Do You Or Have You Ever Used Any Other Forms Of Tobacco Or Nicotine? No Information not available 12/19/2023 Sex: Female Functional Status Question Answer Note LastModified by Organizat ion Details LastModified Time Are you able to care for yourself? Yes Information not available 12/19/2023 What is your exercise level? Occasional Information not available 12/19/2023 Mental Status None recorded. Family History Relationship Description Onset Age of this Age Resolved Age Notes LastModified by Organization Details LastModified Time Mother Alcohol abuse [email or web address] Not available 2023 10:45:41 Mother Heart disease more issues [email or web address] Not available 06/18/2024 10:09:28 Mother Hypertensive disorder tcarterma Not available 2023 10:46:21 Father Diabetes mellitus tcarterma Not available 2023 10:45:55 Father Hypertensive disorder tcarterma Not available 2023 10:46:21 Father Myocardial infarction tcarterma Not available 10:46:34 Sister Diabetes mellitus tcarterma Not available 2023 10:45:55 Sister Myocardial infarction tcarterma Not available 10:46:34 Medical History Condition Response Anxiety Disorder Y Diabetes N Coronary Artery Disease N Muscle, Joint, or Bone Problems N Atrial Fibrillation N Seizures/Epilepsy N Acid Reflux (GERD) N Cancer N Stroke N Thyroid Problems N GI Problems N Blood Clots N COPD N Depression N Asthma N Allergies Y Skin Problems N Anemia Y High Cholesterol N Liver Disease N Headaches Y Osteoporosis N Gynecological History Statement/Question Response Menses Monthly N Current Control Method Hysterectom y On BCP's at Conception? N Obstetrics History GPAL:G 3 P 3 0 0 3 Type Value Multiple Births 0 Full Term 3 Induced 0 Spontaneous 0 Premature 0 Living 3 Ectopics 0 Total 3 Immunizations Vaccine Type Date Status Note Provider Nam e and Address Organization Details Recorded Time Influenza, MDCK, quadrivalent, PF 2 completed Lydia Nails [place], [place] [facility] 12/09/2024 12:23:31 COVID-19, mRNA, LNP-S, PF, 30 mcg/0.3 mL dose 1 completed Lydia Nails [place] [facility] 12/09/2024 12:23:31 COVID-19, mRNA, LNP-S, PF, 30 mcg/0.3 mL dose 1 completed Lydia Nails [place] [facility] 12/09/2024 12:23:31 COVID-19, mRNA, LNP-S, PF, 30 mcg/0.3 mL dose 1 completed Lydia Nails [place] [facility] 12/09/2024 12:23:31 COVID-19, mRNA, LNP-S, bivalent, PF, 30 mcg/0.3 mL dose 2 completed Lydia Nails [place] [facility] 12/09/2024 12:23:31 pneumococcal polysaccharide PPV23 3 completed Lydia Nails [place] [facility] 12/09/2024 12:23:31 Tdap 0 completed Lydia Nails [place] [facility] 12/09/2024 12:23:31 Past Encounters Encounter ID Performer Location Encounter Start Date Encounter Closed Date Diagnosis/Indication Diagnosis SNOMED-CT Code Diagnosis ICD10 Code Diagnosis Note [id number] MAGDALENA Cavazos [facility]ly [facility], [facility] [address] [place] [address] 12/19/2023 09:44:23 12/19/2023 10:41:14 Adult health examination 881993099 Z00.01 wellness exam completed Multiple sclerosis 67652 007 G35 recent MRI brain very stable, no new lesions. Kesimpta monthly injection very stable. Generalize d anxiety disorder 29407738 F41.1 stable on buspar 7.5mg bid. Benign ess ential hypertension 2719107 I10 on HCTZ 12.5mg daily. Her bp has been stable. digital cuff upon exam arrival showed it higher but normalized . Long-term drug therapy 721531502 Z79.899 routine cbc, cmp and Ua ordered. Vitamin D deficiency 347 67450 E55.9 refill on high dose weekly supplement . Cholesterol screening 27 9722668 Z13.220 fasting lipids are due. Diabetes m ellitus screening 704017595 Z13.1 a1c screening due. Thyroid di sorder screening 220980482 Z13.29 TFT panel ordered for annual screening Insomnia 779967561 G47.0 0 stable on zolpidem 5mg qhs. [id number] MAGDALENA Cavazos [facility] [place] [address] [place] [address] 06/18/2024 09:48:37 06/18/2024 11:10:07 Multiple sclerosis 44462730 G35 recent MRI brain very stable, no new lesions. Kesimpta monthly injection very stable. Generalize d anxiety disorder 15439285 F41.1 stable on buspar 7.5mg bid. No complaints or concerns or requests for change in dosing Benign ess ential hypertension 8069703 I10 on HCTZ 12.5mg daily. 146/90 on exam today which is mildly elevated. We will need to have her monitor home readings and report back via the portal on any continued escalation s in that case we would make changes to her regimen including adding another agent. Vitamin D deficiency 347 65100 E55.9 Continue high-dose vitamin-D 27337 unit capsule once weekly dosing Insomnia 470247316 G47.0 0 stable on zolpidem 5mg qhs. No acute complaints Long-term drug therapy 750463779 Z79.899 Labs are all ordered for evaluation Cholesterol screening 27 6230688 Z13.220 fasting lipids are due. Diabetes m ellitus screening 396294995 Z13.1 a1c screening due. Thyroid di sorder screening 128221890 Z13.29 TFT panel ordered for annual screening Macromastia 593829216 N6 2 36DD sizing per report. Patient would like to be referred to Plastic surgery for consult in breast reduction surgery. She does have upper back and neck pain that she knows is related to this. With her small size and stature her macromasti a is contributi ng to a lot of her daily discomfort and pain. Body mass index 30+ - obesity 578431549 Z68.30 BMI is 30.4 Obesity 626750132 E66.8 cmp, cbc and b12, folate labs are due [id number] MAGDALENA Cavazos [facility] - [facility] [address] [place] [address] 01/19/2025 09:29:35 01/19/2025 10:45:06 Multiple sclerosis 12117281 G35 recent MRI brain very stable, no new lesions. Kesimpta monthly injection very stable. Generalize d anxiety disorder 42618666 F41.1 stable on buspar 7.5mg bid. No complaints or concerns or requests for change in dosing Benign ess ential hypertension 4349086 I10 on HCTZ 12.5mg daily. Vitamin D deficiency 347 17916 E55.9 Continue high-dose vitamin-D 44354 unit capsule once weekly dosing Insomnia 594706150 G47.0 0 stable on zolpidem 5mg qhs. No acute complaints Long-term drug therapy 888184027 Z79.899 Labs are all ordered for evaluation Cholesterol screening 27 2211459 Z13.220 fasting lipids are due. Diabetes m ellitus screening 843585044 Z13.1 a1c screening due. Thyroid di sorder screening 584415468 Z13.29 TFT panel ordered for annual screening Adult heal th examination 380748311 Z00.01 wellness exam completed Body mass index 30+ - obesity 161974953 Z68.30 BMI is 30 Obesity 588423360 E66.9 Health Concerns Section Related Observation LastModified by Organization Detai ls LastModified Time None Recorded Concern Status LastModified by Organization Details LastModified Time None Recorded Advance Directives Directive N: Payers Encounter Date Sequence Insurance Name Policy Number Policy Chung Covered Member ID Chung Member ID Guarantor Name 12/19/2023 1 [facility] [id number] June [facility] [id number] [facility] 06/18/2024 1 [facility] [id number] June [facility] [id number] June [facility] 01/19/2025 1 [facility] ([id number]) [id number] [facility] [id number] June [facility] Notes Date Note Type Note Provider Name and Address Organization Details Recorded Time 02/29/202 4 text/html Anxiety/DepressionReported bypatient.Notes:stable on buspar 7.5mg bid.Generic HPI TemplateReported bypatient.Notes:Multiple Sclerosis patient. no new lesions on brain MRI 2023, medicine working well.Insomnia hx. stable HypertensionReported bypatient.Notes:pt is taking low dose hctz 12.5mg daily.InsomniaReported bypatient.Notes:stable on ambien 5mg qhs. MAGDALENA Cavazos Attn: Accounting,[address] [facility], [place], [address], [facility] 12/29/2023 17:24:30 4 text/html Anxiety/DepressionReported bypatient.Notes:stable on buspar 7.5mg bid. No acute concerns or complaintsGeneric HPI TemplateReported bypatient.Notes:Multiple Sclerosis patient. no new lesions on brain MRI 2023, medicine working well. She is now on Kesimpta pen injections once monthly HypertensionReported bypatient.Notes:pt is taking low dose hctz 12.5mg daily. She does have some elevation in her blood pressure todayInsomniaReported bypatient.Notes:stable on ambien 5mg qhs. Patient reports she would like to consult with plastic surgeon on her macromastia and options for breast reduction surgery. She has a lot of upper back and neck pain and indentations in her shoulders from bra straps. MAGDALENA Cavazos Attn: Accounting,[address] [facility], [place], [address], [facility] 06/22/2024 10:20:30 5 text/html Anxiety/DepressionReported bypatient.Notes:stable on buspar 7.5mg bid.Generic HPI TemplateReported bypatient.Notes:Multiple Sclerosis patient. no new lesions on brain MRI 2023, medicine working well.Insomnia hx. stable HypertensionReported bypatient.Notes:pt is taking low dose hctz 12.5mg daily.InsomniaReported bypatient.Notes:stable on ambien 5mg qhs. MAGDALENA Cavazos Attn: Accounting,[address] [facility], [place], [address], [facility] 01/19/2025 10:08:09 OBGyn Episode No OBEpisode recorded.
--- OUTSIDE RECORDS SUMMARY | 2025-02-11 06:08 | XMS_ITS | Encounter Summary ---
Author Organization [facility] Address [address] [place] [address] Care Team Providers Care Supervisor Speech Name Role Phone Cate Wolfe MD Primary Care Provider [phone] Encounter Details Date Type Department Care Team (Late st Contact Info) Description 09/16/2007 Outpatient Historical Division of Neurology 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
--- OUTSIDE RECORDS SUMMARY | 2025-02-11 06:08 | XMS_ITS | Encounter Summary ---
[facility] Organization [facility] Address 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) Social History Tobacco Use Types Packs/Day Years Used Date Smoking Tobacco: Never Assessed Comments Unknown Sex and Gender Information Value Date Recorded Sex Assigned at Not on file 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
--- OUTSIDE RECORDS SUMMARY | 2025-02-11 06:08 | XMS_ITS | Encounter Summary ---
Author Organization [facility] Address [address] [place] [address] Care Team Providers Care Supervisor [employer] Name Role Phone Cate Wolfe MD Primary Care Provider [phone]- [phone] Encounter Details Date Type Department Care Team (Late st Contact Info) Description 10/26/2005 Outpatient Historical Division of Neurology 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
--- OUTSIDE RECORDS SUMMARY | 2025-02-11 06:08 | XMS_ITS | Data Portability ---
Author Organization [place] - [facility], Main Office Address [address] [place] [address] Assessment Encounter Date Assessment Date Assessment LastModified by Organization Details LastModified Time 04/02/2023 04/02/2023 37-year-old female presents the clinic concerning left wrist carpal tunnel symptoms for the last year that have been exacerbated with home remodeling. She is also having some symptoms of cubital tunnel and possible cervical radiculopathy. We discussed possible treatment options including activity modification, continued bracing, oral steroids to help with any inflammation of the nerves met multiple levels. Patient was agreeable to this plan and was provided with a prescription for Medrol Dosepak. we discussed continued use of the wrist brace every night and during the day as needed to keep her wrist in a neutral position. She should avoid resting her elbows on arm rest or tables, and try to sleep with her elbows in extension to relieve some of the compression and inflammation over her cubital tunnel. Patient will follow-up as needed if her symptoms do not improve over the next 6 weeks. [email or web address] Not available 04/02/2023 10:39:37 Plan of Treatment Reminders Order Date Submit Date Provider Last Modified By Organization Details Last Modified Time Details Appointments None recorded. Lab insulin, serum 2022 024 [email or web address] [facility], [address] [facility], [place], [address], 4 18:11:32 TSH + free T4, serum 2022 024 [email or web address] [facility], [address], [place], [address], 4 18:11:32 cortisol, am, serum 2022 024 [facility], [address] [facility], [facility], [place], [address], 4 18:11:32 CMP, serum or plasma 2022 024 [email or web address] [facility], [address] [facility], [facility], [place], [address], 4 18:11:31 CBC w/ auto diff 2022 024 [email or web address] [facility], [address] [facility], [facility], [place], [address], 4 18:11:31 urinalysis complete, reflex culture 2022 024 [email or web address] [facility], [address] [facility], [facility], [place], [address], 4 18:11:32 HbA1c (hemoglobi n A1c), blood 2022 024 [email or web address] [facility], [address] [facility], [facility], [place], [address], 4 18:11:31 lipid panel, serum 2022 024 [email or web address] [facility], [address] [place] [address], [facility], [place], [address], 4 18:11:31 Referral orthopedic surgeon referral 2022 023 [email or web address] 46 Chalo Navas MD, [address] [place], [address], 3 16:14:57 Procedures nerve conduction study/EMG, upper extremity (PROC) 2022 023 [facility]), [address], [place], [address], 3 16:31:32 Surgeries None recorded. Imaging XR, hand, 3 or more view 2022 023 [email or web address] [place], [address], [place], [address], 3 10:16:38 Medication Orders Medrol (Janes) 4 mg tablets in a dose pack [address]/[id number], [address] [place], [address], 3 12:05:01 Patient TargetsNo targets recorded. Patient InstructionsNo instructions recorded. Reason for Referral Orthopedic Surgeon Referral for Paresthesia of hand left hand numbness, likely CTS, NCS ordered and pending. Referring Physician: Aleisha Meyer, Internal Medicine, Encounter Date: 03/19/2023 Results Created Date Observation Date Name Description Value Unit Range Abnormal Flag Note LastModifiedBy Organization Detail LastModifiedTime 04/18/20 22 03/06/2022 MRI, lumba r spine , w/o contr ast No observ ation record ed. [id number] [facility] [address], [place], [address], 12/19/2022 18:21:56 04/02/20 23 XR, hand, 3 or more view No observ ation record ed. [email or web address] [facility] [place] [address], [place], [address], 04/02/2023 10:16:39 10/10/20 23 10/01/2023 nerve condu ction study /EMG, upper extre mity (PROC ) No observ ation record ed. [address], [place], [address], 10/22/2023 12:20:33 Result Notes None recorded. Problems Name Problem SNOMED Code Status Onset Date Resolution Date Notes Provider Name and Address Organization Details Recorded Time Benign essential hypertensi on 0539995 Active 2018 Not Available [facility] 3 18:20:53 Acute sinusitis 64393190 Active Not Available [facility] 3 18:20:53 Insomnia 589631792 Active 2021 Not Available [facility] 3 18:20:53 Acute left otitis media 802711689 Active 2022 Not Available [facility] 3 18:20:53 Contact dermatitis caused by urushiol from [facility] saira 360036620 Active 2021 Not Available [facility] 3 18:20:53 Generalize d anxiety disorder 93933793 Active Not Available [facility] 3 18:20:53 Multiple sclerosis 25685932 Active Not Available [facility] 3 18:20:53 Anemia 202880193 Active Not Available [facility] 3 18:20:53 Seasonal allergic rhinitis 932382389 Active Not Available [facility] 3 18:20:54 Tension-ty pe headache 592066881 Active 2021 Not Available [facility] 3 18:20:54 Paresthesi a of hand 182187114 Active 2022 MAGDALENA Cavazos [address], [place], [address] , [employer] [facility] [employer] [facility] 3 09:55:57 Pain of left hand 9815029189359 03 Active 2022 [place], ATC L null, [employer] [facility] [employer] [facility] 3 09:50:44 Carpal tunnel syndrome of left wrist 7286518243220 02 Active 2022 MAGDALENA Zaragoza [address], [place], [address] , [employer] [facility] [employer] [facility] 3 10:16:57 Blood glucose outside reference range 236537332 Active 2022 MAGDALENA Cavazos [address], [place], [address] , [facility] [employer] [facility] 14:59:16 Weight gain 5018713 Active 2022 MAGDALENA Cavazos [address] [facility], [facility], [place], [address] , [facility] 14:59:59 Problem Notes None recorded. 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 Surgery completed Not Available [facility] 12/20/19 18:19:59 Eye Surgery completed Not Available [facility] 12/19/2022 18:19:59 completed Not Available [facility] 0 12/19/2022 18:19:59 Hysterectomy completed [facility] 12/19/2022 18:19:59 completed Not Available [facility] 0 12/19/2022 18:19:59 other completed Not Available [facility] 10/2022 18:19:59 completed Not Available [facility] 0 12/19/2022 18:19:59 Imaging Results Imaging Date Name Status LastModified by Organiz ation Details LastModified Time 03/06/2022 MRI, lumbar spine, w/o contrast completed [id number] [facility] [address] [facility], [place], [address], 12/19/2022 18:21:56 04/02/2023 XR, hand, 3 or more view completed [email or web address] [facility] [place] [address] [facility] [address], [place], [address], 04/02/2023 10:16:39 10/01/2023 nerve conduction study/EMG, upper extremity (PROC) completed [address], [place], [address], 10/22/2023 12:20:33 Procedure Notes None recorded. Medical Equipment None Reported. Allergies No known drug allergies Medications Name Sig Start Date Stop Date Status Note LastModified by Organization Details LastModified Time buspirone 5 mg tablet Take 1 tablet twice a day by oral route. 04/08 completed Not Available Not Available Not Available prednisone 10 mg tablet TAKE 3 TABLETS BY MOUTH ONCE DAILY X4DAYS, 2TABS X3DAYS, THEN 1 TAB X3DAYS 01/08 completed Not Available Not Available Not Available doxycycline hyclate 100 mg capsule active Not Available Not Available N ot Available nabumetone 750 mg tablet TAKE 1 TABLET BY MOUTH TWICE A DAY 04/19 completed Not Available Not Available Not Available azithromyci n 250 mg tablet TAKE 2 TABLETS (500 MG) BY ORAL ROUTE ONCE DAILY FOR 1 DAY THEN 1 TABLET (250 MG) BY ORAL ROUTE ONCE DAILY FOR 4 DAYS 10/11 completed Not Available Not Available Not Available alprazolam 1 mg tablet TAKE 1 TABLET BY MOUTH 30 MINUTES PRIOR TO PROCEDURE . BRING REMAINING TABLETS WITH YOU 01/08 completed Not Available Not Available Not Available tizanidine 4 mg tablet TAKE 1 TABLET BY MOUTH EVERY 6 HOURS NEEDED active Not Available Not Available No t Available benzonatate 200 mg capsule Take 1 capsule 3 times a day by oral route. active Not Available Not Available No t Available clarithromy rosibel 500 mg tablet Take 1 tablet every 12 hours by oral route with meals. active Not Available Not Available No t Available hydrocodone 5 mg-acetamin ophen 325 mg tablet TAKE 1 TO 2 TABLETS BY MOUTH EVERY 4 TO 6 HOURS NEEDED FOR PAIN 11/04 completed Not Available Not Available Not Available meloxicam 15 mg tablet TAKE 1 TABLET BY MOUTH EVERY DAY WITH FOOD 09/10 completed Not Available Not Available Not Available ondansetron HCl 4 mg tablet 11/04 completed Not Available Not Available Not Available prednisone 20 mg tablet TAKE 3 TABLETS BY MOUTH FOR 3 DAYS, TAKE 2 TABLETS FOR 3 DAYS, THEN TAKE 1 TABLET FOR 3 DAYSthen take 1/2 po daily x 2 days. active Not Available Not Available No t Available prednisone 5 mg tablet 10/23 completed Not Available Not Available Not Available acyclovir 800 mg tablet TAKE 1 TABLET 5 TIMES A DAY 04/08 completed Not Available Not Available Not Available ondansetron 8 mg disintegrat ing tablet PLACE 1 (ONE) TABLET EVERY SIX HOURS NEEDED FOR NAUSEA 04/08 completed Not Available Not Available Not Available ketorolac 10 mg tablet TAKE 1 TABLET BY MOUTH EVERY 6 HOURS NEEDED FOR PAIN 11/04 completed Not Available Not Available Not Available alprazolam 0.5 mg tablet TAKE 1 TAB BY MOUTH 1 HOUR PRIOR TO PROCEDURE . TAKE 1 TAB 30 MIN BEFORE. BRING 1 TAB WITH YOU TO APT 03/21 completed Not Available Not Available Not Available amoxicillin 875 mg tablet TAKE 1 TABLET BY MOUTH TWICE A DAY FOR 10 DAYS 10/24 completed Not Available Not Available Not Available methocarbam ol 750 mg tablet Take 1 tablet every 4-6 hours by oral route as needed. active Not Available Not Available No t Available baclofen 10 mg tablet Take 1 tablet 4 times a day by oral route as needed. 08/30 completed Not Available Not Available Not Available hydrocodone 7.5 mg-acetamin ophen 325 mg tablet TAKE 1 TABLET BY MOUTH EVERY 4 HOURS NEEDED FOR PAIN 04/08 completed Not Available Not Available Not Available cephalexin 500 mg capsule TAKE ONE CAPSULE BY MOUTH 3 TIMES A DAY 11/03 completed Not Available Not Available Not Available triamcinolo ne acetonide 0.1 % topical ointment APPLY TOPICALLY 2 (TWO) TIMES A DAY NEEDED FOR IRRITATIO N OR RASH 03/21 completed Not Available Not Available Not Available sertraline 25 mg tablet TAKE 1 TABLET BY MOUTH DAILY IN THE EVENING active Not Available Not Available No t Available buspirone 7.5 mg tablet TAKE 1 TABLET BY MOUTH TWICE A DAY active Not Available Not Available No t Available montelukast 10 mg tablet TAKE 1 TABLET BY MOUTH DAILY 2023 active Not Available Not Available Not Avai lable zolpidem 5 mg tablet TAKE 1 TABLET BY MOUTH DAILY AT BEDTIME NEEDED FOR SLEEP 2023 active Not Available Not Available Not Avai lable gabapentin 100 mg capsule Take 1 capsule 3 times a day by oral route as directed. active Not Available Not Available No t Available methylpredn isolone 4 mg tablets in a dose pack TAKE 6 TABLETS ON DAY 1 DIRECTED ON PACKAGE AND DECREASE BY 1 TAB EACH DAY FOR A TOTAL OF 6 DAYS 06/07 completed Not Available Not Available Not Available albuterol sulfate HFA 90 mcg/actuati on aerosol inhaler INHALE 2 PUFFS BY MOUTH EVERY 6 HOURS NEEDED FOR WHEEZING OR COUGH 04/18 completed Not Available Not Available Not Available fluocinonid e 0.05 % topical cream APPLY TO AFFECTED DAILY FOR 2 WEEKS 09/10 completed Not Available Not Available Not Available cefdinir 300 mg capsule Take 1 capsule every 12 hours by oral route. active Not Available Not Available No t Available amoxicillin 875 mg-potassiu m clavulanate 125 mg tablet TAKE 1 TABLET BY MOUTH EVERY 12 HOURS 03/15 completed Not Available Not Available Not Available cyclobenzap rine 5 mg tablet TAKE 1 TABLET 3 TIMES A DAY BY ORAL ROUTE NEEDED. active Not Available Not Available No t Available ibuprofen takes 250mg as needed. 03/06 completed Not Available Not Available Not Available valacyclovi r 800mg 04/08 completed Not Available Not Available Not Available Xanax PRN 11/27 completed Not Available Not Available Not Available L norgest/E estradiol-E estrad 0.15 mg-30 mcg (84)/10 mcg(7) tabs,3mos TAKE 1 TABLET BY MOUTH EVERY DAY 04/08 completed Not Available Not Available Not Available hydrochloro thiazide 12.5 mg tablet TAKE 1 TABLET BY MOUTH DAILY IN THE MORNING active Not Available Not Available No t Available dimethyl fumarate 240 mg capsule,del ayed release TAKE 1 CAPSULE BY MOUTH TWICE DAILY. 04/18 completed Not Available Not Available Not Available Tecfidera 11/03 completed Not Available Not Available Not Available Kesimpta Pen 20 mg/0.4 mL subcutaneou s pen injector active Not Available Not Available Not Available BinaxNOW COVID-19 Ag Self Test kit TEST DIRECTED TODAY 03/15 completed Not Available Not Available Not Available Vitals Date Recorded Body mass index (BMI) Body height Oxygen saturation Oxygen saturation in Arterial blood by Pulse oximetry Heart rate Respiratory rate Body temperature Body weight Systolic blood pressure Diastolic blood pressure Provider Name and Address Organization Details Last Updated DateTime 2 30.9 kg/m2 157.48 cm 97 % 97 % 84 /min 16 /min 97.3 [degF] 88476.8 3 g 128 mm[Hg] 88 mm[Hg] Not Available [employer] 3 18:20:37 Date Recorded Body height Oxygen saturation Oxygen saturation in Arterial blood by Pulse oximetry Heart rate Body temperature Body weight Systolic blood pressure Diastolic blood pressure Provider Name and Address Organization Details Last Updated DateTime 3 157.48 cm 98 % 98 % 81 /min 97.7 [degF] 79232.8 9 g 126 mm[Hg] 88 mm[Hg] Not Available [facility] 3 18:20:37 Date Recorded Body height Body mass index (BMI) Body weight Heart rate Oxygen saturation Oxygen saturation in Arterial blood by Pulse oximetry Body temperature Systolic blood pressure Diastolic blood pressure Provider Name and Address Organization Details Last Updated DateTime 3 157.48 cm 30.9 kg/m2 55352.1 1 g 74 /min 99 % 99 % 97.6 [degF] 122 mm[Hg] 82 mm[Hg] Tita Morales, RN [place] [employer] 3 09:46:42 Date Recorded Body height Body mass index (BMI) Body weight Provider Name and Address Organization Details Last Updated DateTime 04/02/2023 157.48 cm 31.1 kg/m2 99157.7 g [place] ATC L [employer] [facility] 04/02/2023 09:48:43 Date Recorded Body height Body temperature Body weight Heart rate Oxygen saturation Oxygen saturation in Arterial blood by Pulse oximetry Systolic blood pressure Diastolic blood pressure Provider Name and Address Organization Details Last Updated DateTime 3 157.48 cm 98 [degF] 54073.7 8 g 76 /min 99 % 99 % 132 mm[Hg] 88 mm[Hg] Tita Morales, DESMOND [employer] 3 14:28:57 Date Recorded Body mass index (BMI) Provider Name and Address Organization Details Last Updated DateTime 06/10/2023 29.3 kg/m2 MAGDALENA Cavazos [address] [facility], [facility], [place], [address], [employer] [facility] 06/20/2023 16:12:16 Social History Question Answer Notes LastModified by Organizat ion Details LastModified Time Tobacco Smoking Status Never Smoker [place] ATC L [facility], [employer] [facility] 04/02/2023 09:49:45 What Is Your Level Of Alcohol Consumption? None [email or web address] Information not available 04/02/2023 What Is Your Level Of Caffeine Consumption? Occasional [id number] Information not available 12/19/2022 How Much Tobacco Do You Chew? None [id number] Information not available 12/19/2022 In The 14 Days Before Symptom Onset, Have You Had Close Contact With A Laboratory-confir med COVID-19 While That Case Was Ill? No [email or web address] Information not available 03/19/2023 In The 14 Days Before Symptom Onset, Have You Had Close Contact With A Person Who Is Under Investigation For COVID-19 While That Person Was Ill? No [email or web address] Information not available 03/19/2023 Are You Currently Employed? Yes [email or web address] Information not available 03/19/2023 What Type Of Diet Are You Following? REGULAR [id number] Information not available 12/19/2022 Which Illicit Or Recreational Drugs Have You Used? None Information not available 03/19/2023 Do You Or Have You Ever Used E-cigarettes Or Vape? 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 [email or web address] Information not available 03/19/2023 Have There Been Any Changes To Your Family Or Social Situation? No [email or web address] Information no t available 03/19/2023 Do You Use Insect Repellent Routinely? No [email or web address] Information not available 03/19/2023 What Is Your Relationship Status? [id number] Information not available 12/19/2022 Do You Use Your Seat Belt Or Car Seat Routinely? Yes Information not available 03/19/2023 Do You Have Smoke And Carbon Monoxide Detectors In Your Home? Yes Information not available 03/19/2023 Do You Or Have You Ever Used Smokeless Tobacco? Never Used Smokeless Tobacco [id number] Information not available 12/19/2022 How Much Tobacco Do You Smoke? No [id number] Information not available 12/19/2022 Do You Use Any Illicit Or Recreational Drugs? No [email or web address] Information not available 03/19/2023 Do You Use Sunscreen Routinely? Yes [email or web address] Information not available 03/19/2023 Have You Recently Traveled Abroad? No [email or web address] Information not available 03/19/2023 Do You Have Any Dietary Restrictions? No [email or web address] Information not available 03/19/2023 Do You Or Have You Ever Used Any Other Forms Of Tobacco Or Nicotine? No [email or web address] Information not available 03/19/2023 Sex: Unknown Functional Status Question Answer Note LastModified by Organizat ion Details LastModified Time What is your exercise level? Moderate [id number] Information not available 12/19/2022 Mental Status None recorded. Family History Relationship Description Onset Age of this Age Resolved Age Notes LastModified by Organization Details LastModified Time Mother Chronic obstructive pulmonary disease [email or web address] Not available 03/19 09:40:13 Mother Hypertensive disorder [id number] Not available 12/19/2022 18:19:59 Mother Diabetes mellitus [id number] Not available 12/19/2022 18:19:59 Father Hypertensive disorder [id number] Not available 12/19/2022 18:20:00 Father Fibrosis of lung [email or web address] Not available 03/19 09:40:13 Sister Diabetes mellitus [id number] Not available 12/19/2022 18:20:00 Sister Hypertensive disorder [id number] Not available 12/19/2022 18:20:00 Sister Rheumatoid arthritis [email or web address] Not available 03/19 09:40:13 Unspecified Relation Disease of liver [email or web address] Not available 03/19 09:40:13 Unspecified Relation Malignant neoplastic disease Not available 03/19 09:40:13 Medical History Condition Response EYE PROBLEMS Y ARTHRITIS Y HEADACHES/MIGRAINES Y ANXIETY DISORDER Y ANEMIA/BLOOD DISORDER Y DIZZINESS Y BRONCHITIS Y DEPRESSION (INCLUDING POST ) Y BACK / NECK PROBLEMS Y HEARTBURN / REFLUX Y HYPERTENSION Y Gynecological History Statement/Question Response Menses Monthly N Abnormal Pap Y Date of Last Pap 01/14/2017 Current Control Method Hysterectom y Sexually Active? Y Obstetrics History GPAL:G 3 P 0 0 0 3 Type Value Living 3 Total 3 Immunizations Vaccine Type Date Status Note Provider Nam e and Address Organization Details Recorded Time COVID-19, mRNA, LNP-S, PF, 100 mcg/0.5mL dose or 50 mcg/0.25mL dose completed Not Available [facility] 12/19/2022 18:21:53 COVID-19 vaccine, vector-nr, rS-ChAdOx1, PF, 0.5 mL 1 completed Not Available [facility] 12/19/2022 18:21:53 COVID-19 vaccine, vector-nr, rS-ChAdOx1, PF, 0.5 mL 1 completed Not Available [facility] 12/19/2022 18:21:53 Pneumococcal Conjugate, unspecified formulation 4 completed Not Available [facility] 12/19/2022 18:21:53 Past Encounters Encounter ID Performer Location Encounter Start Date Encounter Closed Date Diagnosis/Indication Diagnosis SNOMED-CT Code Diagnosis ICD10 Code Diagnosis Note [id number] [facility] [place] [address] [place] [address] 04/19/2021 00:00:00 04/19/2021 10:48:24 [id number] [facility] [place] [address] [place] [address] 10/11/2021 00:00:00 10/20/2021 14:50:21 [id number] [facility] [place] [address] [place] [address] 04/18/2022 00:00:00 04/18/2022 10:22:24 [id number] [facility] [place] [address] [place] [address] 10/24/2022 00:00:00 11/18/2022 16:11:24 [id number] MAGDALENA Cavazos [facility] [place] [address] [place] [address] 03/19/2023 09:39:23 03/19/2023 09:58:52 Paresthesia of hand 784812117 R20.2 CTS presentati on in left hand dominant patient. refer for NCS of UEs and consult with Dr. Navas [id number] MAGDALENA Zaragoza [facility] [place] [address] [place] [address] 04/02/2023 09:36:43 04/02/2023 10:14:35 Pain of left hand 3590066476 89709 M79.642 Carpal jairon laith syndrome of left wrist 3308410397 48679 G56.02 [id number] MAGDALENA Cavazos [facility] [place] [address] [place] [address] 06/10/2023 14:23:32 06/10/2023 15:18:17 Adult health examination 199762093 Z00.01 well exam completed. labs ordered Cholesterol screening 27 1660786 Z13.220 fasting lipids due in Oct. Blood gluc ose outside reference range 841633029 R73.09 following a1c Multiple sclerosis 21664 007 G35 stable on Kesimpta from Neuro Generalize d anxiety disorder 77335308 F41.1 stable on sertraline 25mg qhs and buspar 7.5mg bid Benign ess ential hypertension 3022572 I10 stable on hctz 12.5mg daily Insomnia 116599201 G47.0 0 stable on ambien 5mg qhs Tension-type headache 39 1176833 G44.209 stable on tizanidine 4mg qid PRN Long-term drug therapy 476629463 Z79.899 routine CBC, CMP and UA due Weight gain 1175209 R63. 5 screening insulin, TFTs and cortisol Health Concerns Section Related Observation LastModified by Organization Detai ls LastModified Time None Recorded Concern Status LastModified by Organization Details LastModified Time None Recorded Advance Directives Directive None Recorded Payers Encounter Date Sequence Insurance Name Policy Number Policy Chung Covered Member ID Chung Member ID Guarantor Name 03/19/2023 1 [employer] - [employer] - CHOICE PLUS (PPO) [id number] [facility] [id number] June Sil [facility] 04/02/2023 1 [employer] - CHOICE PLUS (PPO) [id number] [facility] [id number] June Sil [place] [facility] 06/10/2023 1 [employer] - [facility] CHOICE PLUS (PPO) [id number] [facility] [id number] [facility] Notes Date Note Type Note Provider Name and Address Organization Details Recorded Time 022 text/ht ml Anxiety/DepressionReported bypatient.Quality:doesnt matter time of day usually depends on whats going on. Severity:denies suicidal ideations; able to maintain relationships;interference with sleep Duration:symptoms lasting over 2 weeks Onset/Timing:still present Context:major life stressors Modifying Factors:medications as directed Associated Symptoms:denies homicidal ideations; no significant weight gain; no significant weight loss; no visual/auditory hallucinations; no delusions; no shortness of breath; mood good; no anxiety; no crying spells; no panic; no isolation; sleeping well; appetite good; energy good; no apathy; maintaining functionalityHypertensionReported bypatient.Duration:has noted for years Onset/Timing:better Alleviating Factors:medication Self Care:under emotional stress Associated Symptoms:no shortness of breath; no palpitations; no decline in exercise capacity; no snoring;fatigueInsomniaReported bypatient.Severity:same Duration:intermittent Modifying Factors:prescription medication Associated Symptoms:no anxiety; no snoring; no depression; no known sleep apnea; no pain; no dyspnea; no urinary frequency; legs do not feel restless; migraines Not Available [facility] 04/18/2022 10:22:24 023 text/ht ml Anxiety/DepressionReported bypatient.Quality:doesnt matter time of day usually depends on whats going on. Severity:denies suicidal ideations; able to maintain relationships;interference with sleep Duration:symptoms lasting over 2 weeks Onset/Timing:still present Context:major life stressors Modifying Factors:medications as directed Associated Symptoms:denies homicidal ideations; no significant weight gain; no significant weight loss; no visual/auditory hallucinations; no delusions; no shortness of breath; mood good; no anxiety; no crying spells; no panic; no isolation; sleeping well; appetite good; energy good; no apathy; maintaining functionalityHypertensionReported bypatient.Duration:has noted for years Onset/Timing:better Alleviating Factors:medication Self Care:under emotional stress Associated Symptoms:no shortness of breath; no palpitations; no decline in exercise capacity; no snoring;fatigueInsomniaReported bypatient.Severity:same Duration:intermittent Modifying Factors:prescription medication Associated Symptoms:no anxiety; no snoring; no depression; no known sleep apnea; no pain; no dyspnea; no urinary frequency; legs do not feel restless; migraines Not Available [employer] 11/18/2022 16:11:24 023 text/ht ml Generic HPI TemplateReported bypatient.Location:left hand Quality:numbness Duration:over a year Associated Symptoms:left hand dominantNotes:she does have Multiple sclerosis but this is not related to that and her neurologist even agrees. pt is here for c/o left hand carpal tunnel MAGDALENA Cavazos [email or web address], [place], [address], [employer] 03/19/2023 10:00:08 023 text/ht ml 37-year-old female presents to clinic concerning left hand pain, numbness and tingling. She states her symptoms began within last year and worsened recently when she began remodeling a house. She localizes the numbness and tingling to her thumb, index, long fingers. She states that her symptoms are exacerbated while typing at work, driving, and wakes her up at night. she has been wearing a brace on her left wrist at night. She also notes that she has been having some neck and left shoulder pain, but notes that her shoulder pain began within the last few days while remodeling. MAGDALENA Zaragoza [email or web address], [place], [address], [employer] 04/02/2023 10:40:26 023 text/ht ml Anxiety/DepressionReported bypatient.Quality:does not matter time of day Severity:denies suicidal ideations; able to maintain relationships; does not interfere with activities of daily living Context:no major life stressors Associated Symptoms:denies homicidal ideations; no significant weight gain; no significant weight loss; no visual/auditory hallucinations; no delusions; no shortness of breath;anxiety;depressionHypertensio nReported bypatient.Onset/Timing:better Associated Symptoms:no shortness of breath; no fatigue; no palpitations; no decline in exercise capacity; no snoring wellnessMultiple Sclerosis hx and follows with neurologist. MAGDALENA Cavazos [address], [place], [address], [place] [facility] 06/20/2023 16:15:26 OBGyn Episode No OBEpisode recorded.
--- OUTSIDE RECORDS SUMMARY | 2025-02-11 06:09 | XMS_ITS | Encounter Summary ---
Author Organization [facility] Healthcare Address [address] [place] [address] Care Team Providers Care Pig Furnace Operator Name Role Phone Aleisha Meyer Primary Care Pr ovider Aleisha Meyer Unavailable Reason for Visit * Reason Comments Cough Patient here for c/o cough for 9 days. Has breast reduction on . Encounter Details Date Type Department Care Team (Late st Contact Info) Description 02/09/2025 6:45 PM CDT Office Visit [facility] at [address] [id number] Almita Pappas NP [address] [place] [id number] Acute cough (Primary Dx) Social History Tobacco Use Types Packs/Day Years Used Date Smoking Tobacco: Never Smokeless Tobacco: Never Alcohol Use Standard Drinks/Week Comments No 0 [...] on file Legal Sex Female 12:53 AM FINANCIAL INTERN Gender Identity Female 08/08/2021 5:49 PM CDT Sexual Orientation Straight 08/08/2021 5: 49 PM CDT documented as of this encounter Last Filed Vital Signs Vital Sign Reading [...] Mass Index 30.18 02/09/2025 7:01 PM CDT documented in this encounter Patient Instructions * Patient Instructions* Almita Pappas NP - 02/09/2025 6:45 PM CDT If you have no improvement or worsening of your symptoms, please follow up with your Primary Care Provider, Convenient Care and or Emergency Room. I strive to provide you with EXCELLENT service. You may receive a survey after your visit today. If you cannot rate your experience as EXCELLENT, please let us know how we can improve and better meet your needs. Thank you for choosing [facility]! It was my pleasure to see you today, I hope you feel better soon! Almita Pappas TRACK BROOM OPERATOR * Attachments The following attachments cannot be sent through Care Everywhere. * Acute Cough (AfterCare(R) Instructions(ER/ED)) ([place]) documented in this encounter Ordered Prescriptions Prescription Sig Dispense Quantity Refills Last Filled Start Date End Date benzonatate (TESSALON) 200 mg capsuleIndications :Acute cough Take 1 capsule (200 mg total) by mouth 3 (three) times a day as needed for cough 20 capsule 02/09/2025 documented in this encounter Progress Notes * Almita Pappas NP - 02/09/2025 6:45 PM CDT Images from the original note were not included. Subjective/Objective Patient ID: June Jacky is a 39 y.o. female. This patient has verbally consented to recording this visit in order to utilize AI technology in generating this note. Chief Complaint Cough (Patient here for c/o cough for 9 days. Has breast reduction on . ) History of Present Illness The patient presents with a persistent cough that started about 8-10 days ago, following exposure to family members with similar symptoms since the beginning of December. Initially, she attributed the symptoms to allergies and treated with sinus and allergy medications. However, the cough has since deepened and she is now expectorating. She also reports left-sided chest pain when coughing. She denies fever and shortness of breath. She had ear pain about 4-5 days ago in the left ear, but this has since resolved. The patient has a history of pneumonia about four years ago. She is scheduled for surgery in a few days and is concerned about the impact of her current symptoms on the procedure. Review of Systems All other systems reviewed and are negative. Physical Exam VITALS: SaO2- 99% HEENT: Ears with minimal fluid on left, not infected. CHEST: Lungs clear to auscultation bilaterally. Physical Exam Vitals reviewed. Constitutional: Appearance: Normal appearance. She is normal weight. She is not ill-appearing. HENT: Head: Normocephalic. Right Ear: Tympanic membrane, ear canal and external ear normal. No middle ear effusion. Tympanic membrane is not erythematous. Left Ear: Ear canal and external ear normal. A middle ear effusion (mild serous) is present. Tympanic membrane is not erythematous. Nose: Nose normal. Mouth/Throat: Mouth: Mucous membranes are moist. Pharynx: Oropharynx is clear. Eyes: Pupils: Pupils are equal, round, and reactive to light. Cardiovascular: Rate and Rhythm: Normal rate and regular rhythm. Pulses: Normal pulses. Heart sounds: Normal heart sounds. Pulmonary: Effort: Pulmonary effort is normal. Breath sounds: Normal breath sounds. No rhonchi. Musculoskeletal: General: Normal range of motion. Cervical back: Normal range of motion. Skin: General: Skin is warm and dry. Capillary Refill: Capillary refill takes less than 2 seconds. Neurological: General: No focal deficit present. Mental Status: She is alert and oriented to person, place, and time. Mental status is at baseline. Psychiatric: Mood and Affect: Mood normal. Behavior: Behavior normal. Thought Content: Thought content normal. Judgment: Judgment normal. Vitals: 02/09/25 1901 BP: 128/89 Pulse: 81 Resp: 12 Temp: 37.1 ??C (98.7 ??F) SpO2: 99% Weight: 74.8 kg (165 lb) Height: 157.5 cm (5' 2 ) No results found. Past Medical History: Diagnosis Date Anemia Anemia HX OTHER MEDICAL Headache, migraine HX OTHER MEDICAL Dr. Cano/transit planning director/[place] HX OTHER MEDICAL Dr. De Paz/neurology HX OTHER MEDICAL 2007 and 2010. HX OTHER MEDICAL hx of pre-eclampsia HX OTHER MEDICAL hx of anemia. HX OTHER MEDICAL Multiple Sclerosis; Comments: [facility] 06/22/2014 - Current Outpatient Medications: albuterol HFA (PROVENTIL HFA,VENTOLIN HFA,PROAIR HFA) 90 mcg/actuation inhaler, Inhale 2 puffs every 6 (six) hours as needed, Disp: , Rfl: baclofen (LIORESAL) 10 mg tablet, TAKE 1 TABLET BY MOUTH DAILY NEEDED FOR MUSCLE SPASMS., Disp: 90 tablet, Rfl: 1 busPIRone (BUSPAR) 15 mg tablet, Take 1 tablet (15 mg total) by mouth 2 (two) times a day, Disp: 60tablet, Rfl: 5 fexofenadine (GRAHAM) 180 mg tablet, take 1 tablet by oral route every day, Disp: 0, Rfl: 0 hydroCHLOROthiazide (HYDRODIURIL) 12.5 mg tablet, Take 1 tablet (12.5 mg total) by mouth every morning, Disp: , Rfl: 5 Kesimpta Pen 20 mg/0.4 mL pen injector, Inject 20 mg under the skin every 30 (thirty) days, Disp: 0.4 mL, Rfl: 5 montelukast (SINGULAIR) 10 mg tablet, Take 1 tablet (10 mg total) by mouth daily, Disp: , Rfl: 3 tiZANidine (ZANAFLEX) 4 mg tablet, Take 1 tablet (4 mg total) by mouth as needed, Disp: , Rfl: benzonatate (TESSALON) 200 mg capsule, Take 1 capsule (200 mg total) by mouth 3 (three) times a dayas needed for cough, Disp: 20 capsule, Rfl: 0 zolpidem (AMBIEN) 5 mg tablet, Take 1 tablet (5 mg total) by mouth nightly as needed for sleep (Patient not taking: Reported on 02/09/2025), Disp: 10 tablet, Rfl: 5 No Known Allergies Social History Tobacco Use Smoking status: Never Smokeless tobacco: Never Substance and Sexual Activity Drug use: No Sexual activity: Not on file Alcohol Use: Not At Risk (11/07/2023) AUDIT-C Frequency of Alcohol Consumption: Monthly or less Average Number of Drinks: 1 or 2 Frequency of Binge Drinking: Less than monthly Past Surgical History: Procedure Laterality Date SECTION x2 Procedures Assessment/Plan Results No results found for this or any previous visit (from the past 4 hours). Assessment & Plan Cough Persistent cough likely post-viral. Oxygen saturation 99%, no fever, no respiratory distress. No pneumonia signs. Discussed post-viral cough duration 4- 6 weeks. Avoided antibiotics due to surgery andlikely no change for post viral cough. Tessalon Perles safe for use. - Prescribe Tessalon Perles for cough suppression. - Offer outpatient chest x-ray if symptoms worsen. Declined xray at visit. Diagnoses and all orders for this visit: Acute cough (Primary) - benzonatate (TESSALON) 200 mg capsule; Take 1 capsule (200 mg total) by mouth 3 (three) times a day as needed for cough Disposition Treatment plan including expectations, follow up, and return precautions discussed with patient/parent, verbalizes understanding. Medication dosage, use, and potential adverse reactions discussed with patient/parent. Advised to follow up with PCP if symptoms do not resolve as expected or sooner if condition worsens. Signs/symptoms warranting ER evaluation reviewed. Patient and/or guardian was given an opportunity to ask questions, questions answered. Almita Pappas NP documented in this encounter Plan of Treatment Not on file documented as of this encounter Visit Diagnoses Diagnosis Acute cough- Primary documented in this encounter Care Teams Pig Furnace Operator Relationship Specialty Start Date End Date Aleisha Meyer PA PCP - General Physician Die Repairer Forging 10/16/19 Aleisha Meyer PA 10/16/19 documented as of this encounter
--- OUTSIDE RECORDS SUMMARY | 2025-02-11 06:09 | XMS_ITS | Clinical Summary ---
Author Organization [facility] [employer] Address [address] [place] [address] Care Team Providers Care Road Train Driver Name Role Phone Unknown, Provider Primary Care Provider Unavaila ble Source Comments [facility] [employer],non-owned Affiliates and Associated Physician Practices is amultiple site organization consisting of ambulatory clinics and hospital sitesin [place], [place], [place] and [place]. This disclosure is being madepursuant to the Care Everywhere program and may not contain all information available regarding this patient. Last updated 18.[facility] [employer] Allergies No known active allergies Medications * Be aware that medications may not be up to date on this document. Alwaysverify current medications with the patient. zolpidem (AMBIEN) 10 MG tablet Active sertraline (ZOLOFT) 25 MG tablet sertraline 25 mg tablet TAKE 1 TABLET BY MOUTH EVERY DAY IN THE EVENING Active Ofatumumab (KESIMPTA) 20 MG/0.4ML SOAJ 1 Active montelukast (SINGULAIR) 10 MG tablet montelukast 10 mg tablet Active hydroCHLOROthia zide (HYDRODIURIL) 12.5 MG TABS Active albuterol HFA (PROVENTIL; VENTOLIN; PROAIR) 108 (90 Base) MCG/ACT inhalerIndicati ons:Bronchitis Inhale 2 (two) puffs by mouth every 6 hours as needed for Wheezing or Cough 1 g 2 1 Active Active Problems Problem Noted Date Diagnosed Date Allergic rhinitis 08/04/2015 Panic disorder without agoraphobia 09/10/2012 Personal history of other di seases of the nervous system and sense organs 09/10/2012 Overview (01/20/2018): Since childhood Will see neurologist Multiple sclerosis 09/10/2012 Overview (01/20/2018): Tingling and numbness and cramping of legs Dr. Hodges in [place] Immunizations Immunization Administration Dates Next Due TDAP (7yrs+) 09/30/2010 Family History Medical History Relation Name Comments None Known Brother Status: Alive Diabetes Father Status: d Elevated Lipids Father Hypertension Father None Known Maternal Grandfather Status: None Known Maternal Grandmother Status: COPD - Chronic Obstructive Pulmonary Disease Mother Status: Alive Heart Disease Mother PR, CAD Hypertension Mother None Known Paternal Grandfather Status: None Known Paternal Grandmother Status: Arthritis Sister RA,; Status: Al daquan Heart Disease Sister states heart a ttck with negative cardiac cath; Status: Alive Hypertension Sister Status: Alive Relation Name Status Comments Brother Father Maternal Grandfather Maternal Grandmother Mother Paternal Grandfather Paternal Grandmother Sister Social History Tobacco Use Types Packs/Day Years Used Date Smoking Tobacco: Never Smokeless Tobacco: Never Tobacco Cessation:Counseling Given: No Alcohol Use Standard Drinks/Week Comments Yes 0 (1 standard drink = 0.6 oz pur e alcohol) Comments No Sex and Gender Information Value Date Recorded Sex Assigned at Not on file Legal Sex Female 5:54 PM BRAKE OPERATOR Gender Identity Not on file Sexual Orientation Not on file Last Filed Vital Signs Vital Sign Reading Time Taken Comments Blood Pressure 148/88 10/03/2021 7:13 PM BRAKE OPERATOR Pulse 78 10/03/2021 7:11 PM BRAKE OPERATOR Temperature 36.7 C (98 F) 10/03/2021 7:11 PM BRAKE OPERATOR Respiratory Rate 16 10/03/2021 7:11 PM BRAKE OPERATOR Oxygen Saturation 95% 10/03/2021 7:11 PM BRAKE OPERATOR Inhaled Oxygen Concentration - - Weight 70.3 kg (155 lb) 10/03/2021 7:11 PM BRAKE OPERATOR Height 157.5 cm (5' 2 ) 10/03/2021 7:11 PM BRAKE OPERATOR Body Mass Index 28.35 10/03/2021 7:11 PM BRAKE OPERATOR Plan of Treatment Health Maintenance Due Date Last Done Comments MAMMOGRAM 1984 HIV SCREENING 1999 HEPATITIS C SCREENING 07/16/2002 HEPATITIS B VACCINE (1 of 3 - 19+ 3-dose series) 2003 LIPID TESTING 02/21/2018 02/21/2013 DTAP/TDAP/TD VACCINES (2 - Td or Tdap) 09/30/2020 09/30/2010 COVID-19 VACCINE ( season) 2024 09/28/2021, 01/24/2021, 01/20/2021, Additional history exists DEPRESSION SCREENING 10/21/2024 INFLUENZA VACCINE (Season Ended) 2025 ZOSTER VACCINE (1 of 2) 2034 HIB VACCINE Aged Out No longer eligi ble based on patient's age to complete this topic HPV VACCINE Aged Out No longer eligi ble based on patient's age to complete this topic MENINGOCOCCAL (Group B) VACCINE SHARED DECISION-MAKING Aged Out No longer eligible based on patient's age to complete this topic MENINGOCOCCAL GROUPS A/C/Y/W VACCINE Aged Out No longer eligible based on patient's age to complete this topic PNEUMOCOCCAL VACCINE Aged Out No long er eligible based on patient's age to complete this topic Procedures Procedure Name Priority Date/Time Associated Diagnosis Comments LIPID PROFILE Routine 02/21/2013 8:39 AM CDT from Last 3 Months or Most Recently Relevant to Health Maintenance Results * (ABNORMAL) LIPID PROFILE (02/21/2013 8:39 AM CDT) Cholesterol Total 191 100 - 199 mg/dL [facility]) Triglycerides 140 0 - 149 mg/dL [facility] ([facility]) HDL 63 >39 mg/dL [facility] ([facility]) Comment: According to ATP-III Guidelines, HDL-C >59 mg/dL is considered a negative risk factor for CHD. VLDL Calculated 28 5 - 40 mg/dL [facility] ([facility]) LDL Calculated 100(H) 0 - 99 mg/dL [facility] ([facility]) Venous blood specimen (specimen) 02/21/2013 8:39 AM CDT 02/21/2013 1:17 PM CDT Narrative [facility] ([facility]) - 02/22/2013 7:09 AM CDT Performed at: - [facility] [address] [place], [place] [id number] Metal Hanger: Jamal Adair PhD, Phone: [phone] us Kaylan Chang REGIONAL VICE PRESIDENT [employer]GICAL [employer]ES[facility] - CHEMISTRY ORDERABLE S Final Result [facility] ([facility] [address] [place] [address], [facility] from Last 3 Months or Most Recently Relevant to Health Maintenance Insurance [facility] Care Teams Road Train Driver Relationship Specialty Start Date End Date Unknown, Provider PCP - General 10/03/21
--- NOTE | 2025-02-11 06:46 | P.OP_ITS ---
Procedure Note - Detailed Date of Procedure 02/11/25 Pre-op Diagnosis Hypertrophy of Breasts Post-op Diagnosis Same Procedure Performed b/l breast reduction Surgeon Baldomero Luke MD Ssrs Report Developer ty devine pa-c Anesthesia General Description of Procedure Patient was seen in the preoperative holding area where the breasts were marked for an inferior pedicle Bansal pattern reduction and the consent form was signed. patient was taken back to the operating room and placed on the table in the supine position. Time-out was performed with Anesthesia, surgeon, and staff agreeing on patient's name, site, and surgery to be performed. SCDs were placed on the lower extremities and inflated. Antibiotics were given IV. After general anesthesia was administered the breasts were prepped and draped in the usual sterile fashion. I took my attention to the right breast where I used a saline moistened lap pad and Yamileth clamp to create a breast tourniquet. The nipple-areolar complex was circumscribed with a 38 mm nipple Sizer and I proceeded with de epithelializing a 8 cm wide inferior pedicle. I made my other skin incisions and then used Bovie cautery to elevate flaps and Dez's plane down to the chest wall exposing the breast tissue. I proceeded with resection of 531g of tissue from the right breast. I irrigated with normal saline and hemostasis with Bovie cautery. The pedicle was plicated with 2-0 Vicryl suture. Skin flaps were closed at the T-junction with 2-0 Prolene. 3-0 Vicryl was used for dermis. The nipple was brought out 5 cm above the inframammary fold at the most prominent portion of the breast at the breast midline and secured with 3-0 Vicryl suture. 4-0 Monocryl was used for subcuticular closure. The skin flaps and nipple appeared viable with good cap refill. And we took my attention to the left breast where the same procedure was perform ed using the breast tourniquet 38 mm nipple Sizer and de epithelializing an 8 cm wide inferior pedicle. I made my skin incisions and then used Bovie cautery to elevate skin flaps and Dez's plane to expose the breast. I proceeded with resection of 534g of tissue from the left breast. This appeared to have reasonable symmetry to the patient's reduced right side. I plicated the pedicle with 2-0 Vicryl suture after irrigation and hemostasis. The T-junction was closed with 2-0 Prolene. 3-0 Vicryl was used for dermis. The nipple was brought out 5 cm above the inframammary fold at the most prominent portion of the breast at the breast midline and secured with 3-0 Vicryl suture for dermis and 4-0 Monocryl subcuticular suture was used. The nipple and skin flaps appeared viable with good cap refill. There was reasonable symmetry to the breasts. I injected 20 cc of 1% lidocaine with epinephrine and 0.5% Marcaine plain along the inframammary fold and anterior axillary line of each breast. A dressing of Mastisol, Steri-Strips, 4 x 4, ABDs and a breast binder was then applied. The patient was awakened from anesthesia and transferred to the recovery room in stable condition. Complications: None Estimated blood loss: 30 cc Disposition: Patient tolerated the procedure well and will be going home later today. Ty Devine PA-C was essential for positioning, retraction, closure and dressing placement [facility] Billing Surgery - Charge Forward: Surgery Billing ([id number])
--- NOTE | 2025-02-11 06:46 | WPDHPUPDATE1 ---
History and Physical Update Update Date/Time: 02/11/25 06:46 Patient seen and examined in pre-operative holding area. No interval change in medical history or symptoms. Patient recalls previous discussion of benefits and alternatives to procedure. Continues to desire to proceed with bilateral breast reduction. Reviewed procedure, post-op expectations and risks including but not limited to bleeding, infection, injury to tendon/nerve/vessel, decreased hand function, stiffness, RSD, no change or worsening of symptoms. I discussed the possible use of assistants and their participation in the case. Patient stated understanding and signed the consent form wishing to proceed.
--- NOTE | 2025-02-11 06:53 | WPDANESEPPF ---
Anes - Initial Pre Proc Eval Procedure: Operation Date: 02/11/25 07:30 Proposed Procedures p Bilateral Breast Reduction Mammoplasty - Baldomero Luke MD Date/Time: 02/11/25 06:53 Surgeon: Baldomero Luke MD Pre Op Diagnosis: Hypertrophy of Breasts Patient Data Age: 39 Gender: F Height: 1.57 m Weight: 73.85 kg Last Vital Signs Temp 37.1 C 02/11/25 06:20 Pulse 87 02/11/25 06:20 Resp 16 02/11/25 06:20 BP 127/94 H 02/11/25 06:20 Pulse Ox 98 02/11/25 06:20 O2 Del Method Room Air 02/11/25 06:20 Allergies Allergy/AdvReac Type Severity Reaction Status Date / Time No Known Allergies Allergy Verified 02/11/25 06:18 Home Medications ?Medication ?Instructions ?Recorded ?Confirmed ?Type cholecalciferol (vitamin D3) 1,250 50,000 unit PO WEEKLY 09/03/19 02/11/25 History mcg (50,000 unit) capsule hydrochlorothiazide 12.5 mg capsule 12.5 mg PO DAILY 09/03/19 02/11/25 History montelukast 10 mg tablet 10 mg PO DAILY 09/03/19 02/11/25 History ofatumumab 20 mg/0.4 mL 20 mg subcut MONTHLY 01/08/22 02/11/25 History subcutaneous pen injector (Kesimpta Pen) zolpidem 5 mg tablet (Ambien) 5 mg PO QHS PRN insomnia 01/08/22 02/11/25 History buspirone 10 mg tablet 10 mg PO BID 07/09/24 02/11/25 History cephalexin 500 mg capsule 500 mg PO Q8H #21 caps 02/11/25 Rx hydrocodone 5 mg-acetaminophen 325 1 tablet PO Q6H PRN pain #16 tabs 02/11/25 Rx mg tablet Patient hx anesthesia problems: post op nausea/vomiting Family hx anesthesia problems: none Results Review: All pre-operative results and documents have been reviewed as part of the pre-operative evaluation. [facility] Past Medical History Medical History (Updated 02/11/25 @ 06:53 by Wero Aleman DO) Anxiety Multiple sclerosis Anemia Surgical History Surgical History (Updated 07/09/24 @ 11:14 by Reema Valente APRN) H/O sinus surgery Hx of LASIK History of 3 sections S/P DODIE (total abdominal hysterectomy) Family History Family History Father Hypertension Family history of diabetes mellitus in first degree relative Mother Hypertension Family history of coronary artery disease Sibling Hypertension Family history of coronary artery disease Social History Social History Smoking status: Never smoker Second hand tobacco smoke exposure: No Alcohol intake: unknown Substance use: unknown Substance use type: does not use Living arrangements: with family Spiritual care concerns: No Anes - Eval Final PreProcedure Day of Procedure 02/11/25 06:53 Patient weight: overweight Heart: regular rate and rhythm Lungs: clear to auscultation Airway: Mallampati scale class II Neurological: alert and oriented Last oral intake: >/= 8 hours ASA classification: III Emergent: no Anesthetic plan: proceed Anesthesia type and monitoring: general LMA and standard monitoring Results Review: All pre-operative results and documents have been reviewed as part of the pre-operative evaluation. Informed Consent: The patient's anesthetic plan and its attendant risks and benefits were discussed with the patient/family/POA. Questions were solicited and answers provided to the satisfaction of the patient/family/POA.
[2025-02-11] MEDS: LACTATED RINGERS 1,000 ML 30 ML IV CONT ×2 (07:13→09:21)
[2025-02-11] MEDS: SCOPOLAMINE 1 MG PATCH 1 PATCH TRANSDERM (07:13)
[2025-02-11] MEDS: ceFAZolin SODIUM 2 GM/20 ML SW SYRINGE IV PUSH (07:25)
[2025-02-11] MEDS: BUPIVACAINE/EPINEPHRINE 0.5% 10 ML VIAL 20 ML INFILTRATE (09:01)
[2025-02-11] MEDS: LIDOCAINE 1% LOCAL INJ 20 ML VIAL INFILTRATE (09:01)
[2025-02-11] MEDS: fentaNYL CITRATE INJ (*CRX) 100 MCG/2 ML VIAL 25 MCG IV PUSH ×4 (09:40→10:10)
[2025-02-11] MEDS: oxyCODONE HCL (*CRX) 5 MG TAB IR PO (10:57)
--- NOTE | 2025-02-11 12:09 | WPDANESPN ---
Anes - Prog Note Post-Op Date/Time: 02/11/25 12:09 Cardiovascular status: normal Respiratory status: normal Airway patency: baseline Mental status: baseline Post-Op hydration status: normal Vital Signs: Last Vital Signs Temp 36.6 C 02/11/25 10:11 Pulse 88 02/11/25 10:42 Resp 14 02/11/25 10:42 BP 141/89 H 02/11/25 10:42 Pulse Ox 99 02/11/25 10:42 O2 Del Method Room Air 02/11/25 10:42 O2 Flow Rate 6 02/11/25 09:31 Pain Score (VAS): 4 I/O: Intake & Output 02/10/25 02/11/25 02/11/25 23:59 07:59 15:59 Intake Total 1500 Balance 1500 Post-procedural complaints: none Patient Feedback: Patient satisfied with anesthetic care. Other Findings: Patient vital signs back to baseline. Patient denies nausea and vomiting. Patient's pain under control. Patient OK for discharge.
== END 2025-02-11 11:08 | disposition home or self-care (01) ==
PROVIDERS: PCP Physician Assistant; Visit Provider Plastic Surgery
PROC: 0HBV0ZZ Excision of Bilateral Breast, Open Approach (ICD-10-PCS; CPT 19318; principal; 2025-02-11 07:30)
DX: N62 Hypertrophy of breast (principal)
CPT/HCPCS: 19318

== ENCOUNTER 2025-02-11 14:28 | Outpatient (NON) | payer OTHER, SELFPAY ==
--- OUTSIDE RECORDS SUMMARY | 2025-02-11 15:42 | XMS_ITS | Clinical Summary ---
Author Organization [facility] Address [address] [place] [phone] Phone Care Team Providers Care Hand Hardener Name Role Phone Cate Wolfe MD Primary Care Provider +1- [phone] Social History Tobacco Use Types Packs/Day Years Used Date Smoking Tobacco: Never Assessed Comments Unknown Sex and Gender Information Value Date Recorded Sex Assigned at Not on file Legal Sex Female 4:56 AM LOAN SERVICING REPRESENTATIVE Gender Identity Not on file Sexual Orientation [...] patient's age to complete this topic Insurance [facility] [id number] Care Teams Hand Hardener Relationship Specialty Start Date End Date Cate Wolfe MD PCP - General Internal Medicine 08/18/14
--- OUTSIDE RECORDS SUMMARY | 2025-02-11 15:42 | XMS_ITS | Referral Summary ---
Author Organization [facility] [address] [facility] lt Address [address] da[address]an [facility] [address] Care Team Providers Care County Auditor Name Role Phone Aleisha Meyer Primary Care Pr ovider Aleisha Meyer Unavailable Encounters Date Type Department Care Team Description 02/09/2025 6:45 PM CDT Office Visit [facility] at [address] [address] Almita Pappas NP Acute cough [...] Nasal saline spray (Simply saline, Little Remedies, Petroleum, [place]) 2 second sprays or 2 squeezes into [...] 05/08/2024 Assessment & Plan (11/12/2024 11:53 AM HOTEL STAFF MEMBER): Increase buspirone to 15 mg twice a day from 7.5 mg twice a day Assessment & Plan (05/08/2024 1:15 PM CDT): Buspirone 10 mg twice a day Vitamin D deficiency 11/08/2023 Assessment & Plan (11/12/2024 11:54 AM HOTEL STAFF MEMBER): 12/30/18 vitamin D 16 Vitamin D3 1000 [...] 02/19/2022 Assessment & Plan (11/12/2024 11:53 AM HOTEL STAFF MEMBER): Ambien 5 mg nightly as needed Assessment & Plan (05/08/2024 1:15 PM CDT): Ambien 5 mg nightly as needed Acute sinusitis 09/12/2020 Anemia 09/12/2020 Benign essential hypertension 06/02/2019 Allergic rhinitis 08/04/2015 Assessment & Plan (08/20/2024 2:01 PM CDT): Nasal saline spray (Simply saline, Little Remedies, Petroleum, [place]) 2 second sprays or 2 squeezes into [...] sclerosis Assessment & Plan (11/12/2024 11:54 AM HOTEL STAFF MEMBER): Diagnosed Age 16: Left hemibody numbness for [...] disorder) Immunizations Immunization Administration Dates Next Due [employer] (J&J) SARS-CoV-2 Vaccination 01/24/2021, 12/23/2020 Moderna SARS-CoV-2 [...] on file Legal Sex Female 12:53 AM HOTEL STAFF MEMBER Gender Identity Female 08/08/2021 5:49 PM CDT [...] Plan of Treatment Not on file Insurance [facility] CHOICE PLUS [place] [id number] [facility] [address] HMO/PPO Address: [id number] [place] [address] Care Teams County Auditor Relationship Specialty Start Date End Date Aleisha Meyer PA PCP - General Physician Packer And Carry Out 10/16/19 Aleisha Meyer PA 10/16/19
--- OUTSIDE RECORDS SUMMARY | 2025-02-11 15:42 | XMS_ITS | Clinical Summary ---
Author Organization [facility] [address] [facility] lt Address [address] [facility] [place] [address] Care Team Providers Care Prefitter Doors Name Role Phone Aleisha Meyer Primary Care [...] Nasal saline spray (Simply saline, Little Remedies, [place], [place]) 2 second sprays or 2 squeezes into [...] 05/08/2024 Assessment & Plan (11/12/2024 11:53 AM TOOL BUILDER): Increase buspirone to 15 mg twice a day from 7.5 mg twice a day Assessment & Plan (05/08/2024 1:15 PM CDT): Buspirone 10 mg twice a day Vitamin D deficiency 11/08/2023 Assessment & Plan (11/12/2024 11:54 AM TOOL BUILDER): 12/30/18 vitamin D 16 Vitamin D3 1000 [...] 02/19/2022 Assessment & Plan (11/12/2024 11:53 AM TOOL BUILDER): Ambien 5 mg nightly as needed Assessment & Plan (05/08/2024 1:15 PM CDT): Ambien 5 mg nightly as needed Acute sinusitis 09/12/2020 Anemia 09/12/2020 Benign essential hypertension 06/02/2019 Allergic rhinitis 08/04/2015 Assessment & Plan (08/20/2024 2:01 PM CDT): Nasal saline spray (Simply saline, Little Remedies, [place], [place]) 2 second sprays or 2 squeezes into [...] sclerosis Assessment & Plan (11/12/2024 11:54 AM TOOL BUILDER): Diagnosed Age 16: Left hemibody numbness for [...] MEDICAL CENTER Medical [facility]ient [facility] at [address] [address] Almita Pappas, COLLEEN Acute cough (Primary Dx) from Last 3 Months Immunizations Immunization Administration Dates Next Due [facility] (J&J) SARS-CoV-2 Vaccination 01/24/2021, 12/23/2020 Moderna [...] on file Legal Sex Female 12:53 AM TOOL BUILDER Gender Identity Female 08/08/2021 5:49 PM CDT [...] patient's age to complete this topic Insurance [facility] CHOICE PLUS [facility] H[facility]/PPO Address: [address] [address] [place] [address] [place] [address] Care Teams Prefitter Doors Relationship Specialty Start Date End Date Aleisha Meyer PA PCP - General Physician Rn Emergency 10/16/19 Aleisha Meyer PA 10/16/19
--- OUTSIDE RECORDS SUMMARY | 2025-02-11 15:42 | XMS_ITS | Encounter Summary ---
Author Organization [facility] Address 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) Social History Tobacco Use Types Packs/Day Years Used Date Smoking Tobacco: Never Assessed Comments Unknown Sex and Gender Information Value Date Recorded Sex Assigned at Not on file Legal Sex Female 4:56 AM MEDICAL TRANSPORT SPECIALIST Gender Identity Not on file Sexual Orientation Not on file documented as of this encounter Plan of Treatment Not on file documented as of this encounter Visit Diagnoses Diagnosis Multiple sclerosis (CMS/HCC) Multiple sclerosis Demyelinating disease of central nervous system, unspecified (CMS/HCC) Demyelinating disease of central nervous system, unspecified documented in this encounter Care Teams Psychotherapist Social Worker Relationship Specialty Start Date End Date Cate Wolfe MD PCP - General Internal Medicine 08/18/14 documented as of this encounter
--- OUTSIDE RECORDS SUMMARY | 2025-02-11 15:42 | XMS_ITS | Clinical Summary ---
Author Organization [facility] Care Team Providers Care District Customs Director Name Role Phone Unavailable Primary Care Provider Unavailabl e Social History Tobacco Use Types Packs/Day Years Used Date Smoking Tobacco: Never Assessed Comments Unknown Sex and Gender Information Value Date Recorded Sex Assigned at Not on file Legal Sex Female 1:02 PM PLASTICS FABRICATION SUPERVISOR Gender Identity Not on file Sexual Orientation [...]
--- OUTSIDE RECORDS SUMMARY | 2025-02-11 15:43 | XMS_ITS | Encounter Summary ---
Author Organization [facility] Address [address] [place] [address] Care Team Providers Care Remote Sensing Advisor Name Role Phone Cate Wolfe MD Primary Care Provider +1- [phone] Encounter Details Date Type Department Care Team (Latest Contact Info) Description 10/12/2005 Outpatient [facility] [address] [address] Lexi Islas MD [address] [address] DIZZINESS AND GIDDINESS (Primary Dx) Social History Tobacco Use Types Packs/Day Years Used Date Smoking Tobacco: Never Assessed Comments Unknown Sex and Gender Information Value Date Recorded Sex Assigned at Not on file Legal Sex Female 4:56 AM SIDEWALK INSPECTOR Gender Identity Not on file Sexual Orientation Not on file documented as of this encounter Plan of Treatment Not on file documented as of this encounter Visit Diagnoses Diagnosis Dizziness and giddiness- Primary documented in this encounter Care Teams Remote Sensing Advisor Relationship Specialty Start Date End Date Cate Wolfe MD PCP - General Internal Medicine 08/18/14 documented as of this encounter
--- OUTSIDE RECORDS SUMMARY | 2025-02-11 15:43 | XMS_ITS | Encounter Summary ---
Author Organization [facility] Address [address] [place] [address] Care Team Providers Care Substation Designer Name Role Phone Cate Wolfe MD Primary Care Provider +1- [phone] Encounter Details Date Type Department Care Team (Late st Contact Info) Description 10/26/2005 Outpatient Historical Division of Neurology [address] [place] [address] Lexi Islas MD [address] [place] [phone] Social History Tobacco Use Types Packs/Day Years Used Date Smoking Tobacco: Never Assessed Comments Unknown Sex and Gender Information Value Date Recorded Sex Assigned at Not on file Legal Sex Female 4:56 AM LEAD RIDER Gender Identity Not on file Sexual Orientation Not on file documented as of this encounter Plan of Treatment Not on file documented as of this encounter Visit Diagnoses Not on filedocumented in this encounter Care Teams Substation Designer Relationship Specialty Start Date End Date Cate Wolfe MD PCP - General Internal Medicine 08/18/14 documented as of this encounter
--- OUTSIDE RECORDS SUMMARY | 2025-02-11 15:43 | XMS_ITS | Encounter Summary ---
Author Organization [facility] Address [address] [place] [address] Care Team Providers Care Prom Burn Off Operator Name Role Phone Cate Wolfe MD Primary Care Provider +1- [phone] Encounter Details Date Type Department Care Team (Late st Contact Info) Description 09/16/2007 Outpatient Historical Division of Neurology [address] [place] [address] Lexi Islas MD [address] [place] [address] Social History Tobacco Use Types Packs/Day Years Used Date Smoking Tobacco: Never Assessed Comments Unknown Sex and Gender Information Value Date Recorded Sex Assigned at Not on file Legal Sex Female 4:56 AM CLINICAL RESEARCH ADMINISTRATOR Gender Identity Not on file Sexual Orientation Not on file documented as of this encounter Plan of Treatment Not on file documented as of this encounter Visit Diagnoses Not on filedocumented in this encounter Care Teams Prom Burn Off Operator Relationship Specialty Start Date End Date Cate Wolfe MD PCP - General Internal Medicine 08/18/14 documented as of this encounter
--- OUTSIDE RECORDS SUMMARY | 2025-02-11 15:43 | XMS_ITS | Encounter Summary ---
Author Organization [facility] Address [address] [place] [address] Care Team Providers Care Rug Cleaner Name Role Phone Cate Wolfe MD Primary Care Provider +1- [phone] Encounter Details Date Type Department Care Team (Late st Contact Info) Description 09/26/2005 Outpatient Historical Division of Neurology [address] [place] [address] Lexi Islas MD [address] [place] [phone] Social History Tobacco Use Types Packs/Day Years Used Date Smoking Tobacco: Never Assessed Comments Unknown Sex and Gender Information Value Date Recorded Sex Assigned at Not on file Legal Sex Female 4:56 AM CORDUROY CUTTING SUPERVISOR Gender Identity Not on file Sexual Orientation Not on file documented as of this encounter Plan of Treatment Not on file documented as of this encounter Visit Diagnoses Not on filedocumented in this encounter Care Teams Rug Cleaner Relationship Specialty Start Date End Date Cate Wolfe MD PCP - General Internal Medicine 08/18/14 documented as of this encounter
--- OUTSIDE RECORDS SUMMARY | 2025-02-11 15:43 | XMS_ITS | Clinical Summary ---
Author Organization [facility] [employer] Address [address] [place] [address] Care Team Providers Care Automotive Exhaust Emissions Technician Name Role Phone Unknown, Provider Primary Care Provider Unavaila ble Source Comments [facility] [employer],non-owned Affiliates and Associated Physician Practices is amultiple site organization consisting of ambulatory clinics and hospital sitesin [place], [place], [place] and [place]. This disclosure is being madepursuant to the Care Everywhere program and may not contain all information available regarding this patient. Last updated 18.[facility] [employer] Allergies No known active allergies Medications * [...] and cramping of legs Dr. Hodges in [place] Immunizations Immunization Administration Dates Next Due TDAP (7yrs+) 09/30/2010 Family History Medical History Relation Name Comments None Known Brother Status: Alive Diabetes Father Status: d Elevated Lipids Father Hypertension Father None Known Maternal Grandfather Status: None Known Maternal Grandmother Status: COPD - Chronic Obstructive Pulmonary Disease Mother Status: Alive Heart Disease Mother [place], CAD Hypertension Mother None Known Paternal Grandfather [...] on file Legal Sex Female 5:54 PM RESEARCH WORKER ENCYCLOPEDIA Gender Identity Not on file Sexual Orientation Not on file Last Filed Vital Signs Vital Sign Reading Time Taken Comments Blood Pressure 148/88 10/03/2021 7:13 PM RESEARCH WORKER ENCYCLOPEDIA Pulse 78 10/03/2021 7:11 PM RESEARCH WORKER ENCYCLOPEDIA Temperature 36.7 C (98 F) 10/03/2021 7:11 PM RESEARCH WORKER ENCYCLOPEDIA Respiratory Rate 16 10/03/2021 7:11 PM RESEARCH WORKER ENCYCLOPEDIA Oxygen Saturation 95% 10/03/2021 7:11 PM RESEARCH WORKER ENCYCLOPEDIA Inhaled Oxygen Concentration - - Weight 70.3 kg (155 lb) 10/03/2021 7:11 PM RESEARCH WORKER ENCYCLOPEDIA Height 157.5 cm (5' 2 ) 10/03/2021 7:11 PM RESEARCH WORKER ENCYCLOPEDIA Body Mass Index 28.35 10/03/2021 7:11 PM RESEARCH WORKER ENCYCLOPEDIA Plan of Treatment Health Maintenance Due Date [...] Total 191 100 - 199 mg/dL [facility]) Triglycerides 140 0 - 149 mg/dL [facility] ([facility]) HDL 63 >39 mg/dL [facility] ([facility]) Comment: According to ATP-III Guidelines, HDL-C >59 mg/dL is considered a negative risk factor for CHD. VLDL Calculated 28 5 - 40 mg/dL [facility] ([facility]) LDL Calculated 100(H) 0 - 99 mg/dL [facility] ([facility]) Venous blood specimen (specimen) 02/21/2013 8:39 AM CDT 02/21/2013 1:17 PM CDT Narrative [facility] ([facility]) - 02/22/2013 7:09 AM CDT [facility]formed at: [facility] [address] [place], [place] [id number] Relief Salesperson: Jamal Adair PhD, Phone: [phone] us Kaylan Chang PACKAGING LINE OPERATOR-ACCOUNT COLLECTOR LAB - CHEMISTRY ORDERABLE S Final Result [facility] ([facility]) [address] [place] [address], [facility] from Last 3 Months or Most Recently Relevant to Health Maintenance Insurance [facility] Care Teams Automotive Exhaust Emissions Technician Relationship Specialty Start Date End Date Unknown, Provider PCP - General 10/03/21
--- OUTSIDE RECORDS SUMMARY | 2025-02-11 15:43 | XMS_ITS | Encounter Summary ---
Author Organization [facility] Healthcare Address [address] [place] [address] Care Team Providers Care Project Management Director Name Role Phone Aleisha Meyer Primary Care Pr ovider Aleisha Meyer Unavailable Reason for Visit * Reason Comments Cough Patient here for c/o cough for 9 days. Has breast reduction on . Encounter Details Date Type Department Care Team (Late st Contact Info) Description 02/09/2025 6:45 PM CDT Office Visit [facility] Medical [facility]ient Care at [address] [address] Almita Pappas NP [address] [place] [id number] Acute cough (Primary Dx) Social History [...] on file Legal Sex Female 12:53 AM OYSTER UNLOADER Gender Identity Female 08/08/2021 5:49 PM CDT [...] meet your needs. Thank you for choosing [facility]! It was my pleasure to see you today, I hope you feel better soon! Almita Pappas SENIOR SCIENTIST * Attachments The following attachments cannot be sent through Care Everywhere. * Acute Cough (AfterCare(R) Instructions(ER/ED)) (Nigerian) documented in this encounter Ordered Prescriptions Prescription [...] MEDICAL Headache, migraine HX OTHER MEDICAL Dr. Cano/senior peoplesoft developer/[place] HX OTHER MEDICAL Dr. De Paz/neurology HX [...] Primary documented in this encounter Care Teams Project Management Director Relationship Specialty Start Date End Date Aleisha Meyer PA PCP - General Physician Barrel Bridge Assembler 10/16/19 Aleisha Meyer PA 10/16/19 documented as of this encounter
== END 2025-02-11 14:29 | disposition home or self-care (01) ==
LOC: ANHLAB 14:29
PROVIDERS: PCP Physician Assistant; Visit Provider Plastic Surgery
DX: N62 Hypertrophy of breast (principal)
CPT/HCPCS: 88305